=== PATIENT | female | born 1975 | race Caucasian/White ===

== ENCOUNTER 2020-05-25 06:54 | Emergency (ER) | payer BC, SELFPAY ==
--- NOTE | ~2020-05-25 | XR_ITS ---
EXAMINATION: XR hip RT min 3V w AP pelvis DATE: 05/25/2020 08:08 INDICATION: Right hip pain. TECHNIQUE: An anteroposterior view of the pelvis and 3 views of right hip were obtained. COMPARISON: CT abdomen and pelvis 03/08/2017 FINDINGS: Bone alignment is normal. No fracture. There is mild osteoarthritis of the hips. There is s evere degenerative disc disease at L4-L5. IMPRESSION: 1. Mild osteoarthritis of the hips. Reviewed, dictated and finalized at location B. [employer]
[2020-05-25 07:05] VITALS: BP 146/109; PULSE 89; RESP 14; TEMP 36.8; O2SAT 100
--- NOTE | 2020-05-25 07:31 | PC.NURSE ---
Assumed care of pt, pt is alert and upright on stretcher, Discussed POC.
--- NOTE | 2020-05-25 07:43 | ED.LOWEXIN ---
HPI - Extremity Injury (Lower) General Chief Complaint: Extremity Injury, Lower Stated Complaint: hamstring pulled Time Seen by Provider: 05/25/20 07:42 Source: patient and family Mode of arrival: ambulatory Limitations: no limitations History of Present Illness HPI Narrative: 44 years old white female, obese, complaining of severe pain at the back of right thigh started this morning. Patient was walking somehow her right leg went forward in front of her and probably did split. Patient denies other injuries. Pain started from the back of the right buttocks to the back of the right thigh. Patient denies any fever, chills, nausea, vomiting, headache, back injury or neck injury. Related Data Home Medications Medication Instructions Recorded Confirmed norgestimate 0.25 mg-ethinyl 1 tablet PO DAILY 05/17/19 estradiol 35 mcg tablet venlafaxine 225 mg tablet,extended 225 mg PO DAILY 05/17/19 release 24 hr folic acid 1 mg tablet 1 mg PO DAILY 05/20/19 methotrexate sodium 2.5 mg tablet 20 mg PO WEEKLY tablet 05/20/19 Allergies Allergy/AdvReac Type Severity Reaction Status Date / Time adalimumab Allergy Unknown rash Verified 05/25/20 07:39 cefdinir Allergy Unknown rash Verified 05/25/20 07:39 etanercept Allergy Unknown rash Verified 05/25/20 07:39 sulfamethizole Allergy Unknown Vomiting Verified 05/25/20 07:39 trimethoprim Allergy Unknown Unknown Verified 05/25/20 07:39 sulfamethoxazole AdvReac Unknown Nausea and Verified 05/25/20 07:39 Vomiting Review of Systems Review of Systems: Narrative: CONSTITUTIONAL: Denies fever, chills, or sweats. EYES: Denies visual changes, redness, or discharge. ENT: Denies rhinorrhea, congestion, sore throat, or otalgia. CARDIOVASCULAR: Denies chest pain, palpitations, or edema. RESPIRATORY: Denies cough or dyspnea. GASTROINTESTINAL: Denies abdominal pain, nausea, vomiting, or diarrhea. GENITOURINARY: Denies dysuria or hematuria. SKIN: Denies rash or itching. MUSCULOSKELETAL: Denies back pain, joint pain, or myalgia. NEUROLOGIC: Denies headache, numbness, or weakness. PSYCHIATRIC: Denies anxiety or depression. [facility] Past Medical History Medical History (Updated 05/25/20 @ 09:24 by Natasha Vazquez MD) Anemia delivery delivered Fibromyalgia S/P ORIF (open reduction internal fixation) fracture L LE-following fall-tib/fib fx May 15 2019; May 25, 2019 Tibia/fibula fracture L LE; May 15, 2019. Family History Family History Mother Family history of mental disorder Depression Family history of migraine headaches Hypertension Asthma Family history of arthritis Patient's mother is in good health, Onset Age: 57 Family history of allergic disorder Sibling Depression Family history of migraine headaches Asthma Grandparent Family history of malignant neoplasm of breast Other Family history of malignant neoplasm of breast in first degree relative Social History Social History Smoking status: Never smoker Second hand tobacco smoke exposure: No Alcohol intake: never Exam Narrative: Exam Narrative: General appearance: Well-developed, well-nourished, obese, in pain Skin: Normal color Head: Normocephalic, nontraumatic Neck: Supple, nontender Chest and respiratory: Airway patent, no respiratory distress, no accessory muscle use Heart: Regular rate/rhythm Vascular: Normal peripheral pulses, normal capillary refill. Musculoskeletal: Mild tenderness right thigh posteriorly, worse with any movement of the right hip. No bruises, no swelling or deformity. Neurologic: Alert and oriented ?3, SUPERINTENDENT NONSELLING is normal as tested, no gross motor deficit
[2020-05-25] MEDS: HYDROmorphone HCL INJ (*CRX) 1 MG/ML SYR IM (08:14)
[2020-05-25] MEDS: ONDANSETRON HCL ODT 4 MG TABLET PO (08:15)
[2020-05-25] MEDS: IBUPROFEN 400 MG TABLET 800 MG PO (08:15)
[2020-05-25 08:17] VITALS: BP 139/97; PULSE 82; RESP 17; O2SAT 98
[2020-05-25 09:03] VITALS: BP 136/96; PULSE 87; RESP 15; O2SAT 97
[2020-05-25 09:42] VITALS: BP 133/88; PULSE 76; RESP 14
== END 2020-05-25 09:45 | disposition home or self-care (01) ==
PROVIDERS: Emergency Provider Emergency Medicine; PCP Family Medicine
DX: S73.101A Unspecified sprain of right hip, initial encounter (principal); M79.7 Fibromyalgia; Z86.2 Personal history of diseases of the blood and blood-forming organs and certain disorders involving the immune mechanism; X50.9XXA Other and unspecified overexertion or strenuous movements or postures, initial encounter
CPT/HCPCS: 73502; 96372; 99283; A9270; J1170

== ENCOUNTER → 2021-01-08 11:29 | Outpatient (CLI) | payer BC, SELFPAY ==
--- NOTE | ~2021-01-08 | MM_ITS ---
EXAMINATION: MM screening [facility] BI w umm HISTORY: Screening TECHNIQUE: Craniocaudal and mediolateral oblique 3-D tomosynthesis images were obtained and synthetic 2-D images were generated. CAD analysis was submitted and interpreted. COMPARISON: Comparison to multiple prior studies sequentially, with oldest reviewed study dated 11/2012. BREAST PARENCHYMAL COMPOSITION: There are scattered areas of fibroglandular density. FINDINGS: There is no evidence of suspicious mass, calcification, or architectural distortion to sugg est malignancy in either breast. There has been no suspicious interval change. IMPRESSION: 1. No mammographic evidence of malignancy. 2. Recommend routine screening mammography in one year. BI-RADS Category 1: Negative Reviewed, dictated and finalized at location A.
== END ==
PROVIDERS: Visit Provider Nurse Practitioner
DX: Z12.31 Encounter for screening mammogram for malignant neoplasm of breast (principal)
CPT/HCPCS: 77063; 77067

== ENCOUNTER 2021-03-11 10:02 | Emergency (ER) | payer OTHER, SELFPAY ==
--- NOTE | ~2021-03-11 | XR_ITS ---
EXAMINATION: XR chest 2V DATE: 03/11/2021 10:52 INDICATION: 6 days of cough. Afebrile. TECHNIQUE: PA and lateral views of the chest were obtained. COMPARISON: Chest radiograph dated 04/12/90 FINDINGS: Scattered patchy airspace opacities throughout both lungs most prominent in the left mid and lower allyssa ng zones with appearance most consistent with COVID pneumonia. No pleural effusion or pneumothorax. T he cardiomediastinal silhouette is normal. Visualized bones and soft tissues are unremarkable. IMPRESSION: 1. Patchy bilateral lung disease most consistent with COVID pneumonia. Reviewed, dictated and finalized at location A.
[2021-03-11 10:11] VITALS: BP 105/67; PULSE 80; RESP 20; TEMP 36.1; O2SAT 95
--- NOTE | 2021-03-11 10:39 | ED.GENADULT ---
HPI - General Adult General Chief complaint: Upper Respiratory Infection Stated complaint: cough Time Seen by Provider: 03/11/21 10:39 Source: patient Mode of arrival: ambulatory Limitations: no limitations History of Present Illness HPI narrative: 45-year-old female patient presents to the [facility] with complaints of a cough and sinus congestion for the past week. Denies fevers, body aches or chills. Patient has been fully vaccinated with a [employer] Covid vaccine. Patient states she has been coughing up a lot of drainage as well as feeling very congested. Patient states she does feel little shortness of breath. Patient states she has been taking DayQuil and NyQuil and Mucinex for her symptoms Related Data Home Medications Medication Instructions Recorded Confirmed norgestimate 0.25 mg-ethinyl 1 tablet PO DAILY 05/17/19 03/11/21 estradiol 35 mcg tablet venlafaxine 225 mg tablet,extended 225 mg PO DAILY 05/17/19 03/11/21 release 24 hr folic acid 1 mg tablet 1 mg PO DAILY 05/20/19 03/11/21 methotrexate sodium 2.5 mg tablet 20 mg PO WEEKLY tablet 05/20/19 03/11/21 bupropion HCl 150 mg 24 hr tablet, 150 mg PO QAM 08/28/20 03/11/21 extended release cholecalciferol (vitamin D3) 50 50 mcg PO DAILY 08/28/20 03/11/21 mcg (2,000 unit) capsule cyclobenzaprine 10 mg tablet 10 mg PO TID 08/28/20 03/11/21 diclofenac sodium 2 % topical 1 packet TOPICAL BID 08/28/20 03/11/21 solution in packet diclofenac sodium 75 mg 75 mg PO BID 08/28/20 03/11/21 tablet,delayed release hydroxychloroquine 200 mg tablet 200 mg PO BID 08/28/20 03/11/21 leflunomide 20 mg tablet 20 mg PO DAILY 08/28/20 03/11/21 levothyroxine 150 mcg capsule 150 mcg PO DAILY 08/28/20 03/11/21 ascorbic sibt-eoaqtkll-scz 1 ea PO DAILY 03/11/21 03/11/21 [Emergen-C Immune Plus] jepskltpfteu-agv-qjsm-FA-vit K 1 tablet PO DAILY 03/11/21 03/11/21 [One Daily Women's] rituximab [Rituxan] 1,000 mg IV USEASDIRECTD 03/11/21 03/11/21 Allergies Allergy/AdvReac Type Severity Reaction Status Date / Time adalimumab Allergy Unknown rash Verified 03/11/21 10:07 cefdinir Allergy Unknown rash Verified 03/11/21 10:07 etanercept Allergy Unknown rash Verified 03/11/21 10:07 sulfamethizole Allergy Unknown Vomiting Verified 03/11/21 10:07 trimethoprim Allergy Unknown Unknown Verified 03/11/21 10:07 sulfamethoxazole AdvReac Unknown Nausea and Verified 03/11/21 10:07 Vomiting Review of Systems Review of Systems: CONSTITUTIONAL: Denies fever, chills, or sweats. EYES: Denies visual changes, redness, or discharge. ENT: Positive rhinorrhea, congestion, denies sore throat, or otalgia. CARDIOVASCULAR: Denies chest pain, palpitations, or edema. RESPIRATORY: Positive productive cough, positive dyspnea. GASTROINTESTINAL: Denies abdominal pain, nausea, vomiting, or diarrhea. GENITOURINARY: Denies dysuria or hematuria. SKIN: Denies rash or itching. MUSCULOSKELETAL: Denies back pain, joint pain, or myalgia. NEUROLOGIC: Denies headache, numbness, or weakness. PSYCHIATRIC: Denies anxiety or depression. [facility] Past Medical History Medical History (Updated 03/11/21 @ 11:05 by JOHN Mcdonnell) Anemia delivery delivered Fibromyalgia Tibia/fibula fracture L LE; May 15, 2019. Surgical History Surgical History S/P ORIF (open reduction internal fixation) fracture L LE-following fall-tib/fib fx May 15 2019; May 25, 2019 Family History Family History Mother Family history of mental disorder Depression Family history of migraine headaches Hypertension Asthma Family history of arthritis Patient's mother is in good health, Onset Age: 57 Family history of allergic disorder Sibling Depression Family history of migraine headaches Asthma Grandparent Family history of malignant neoplasm of breast Other Family history of malignant neoplasm of
--- NOTE | 2021-03-11 13:31 | PC.NURSE ---
1019 Covid test in progress. Patient to have CXR.
[2021-03-12 23:32] LABS: SARS-CoV-2 RNA PCR Positive
== END 2021-03-11 11:26 | disposition home or self-care (01) ==
PROVIDERS: Emergency Provider Nurse Practitioner Family; PCP Family Medicine
DX: M79.7 Fibromyalgia (principal)
CPT/HCPCS: 71046; 87426; 99213; C9803; G0463; U0003; U0005

== ENCOUNTER 2021-03-14 03:19 | Inpatient (IN) | payer BC, SELFPAY ==
[2021-03-14] VITALS (27 sets, daily range): BP systolic 123–154; BP diastolic 81–97; PULSE 73–88; RESP 18–26; TEMP 36.2–37.1; O2SAT 90–100; BMI 37.7
--- NOTE | 2021-03-14 | ECHO_ITS ---
Patient Info Name: Anabel Johns Age: 45 years : 1975 Gender: Female Ht: 64 in Wt: 219 lbs BSA: 2.17 m2 HR: 78 bpm BP: 145 / 92 mmHg Heart Rhythm: Sinus Rhythm Technical Quality: Good Exam Date: 03/14/2021 12:57 PM Exam Location: [facility] Exam Room: ICU1 Patient Status: Inpatient Admit Date: 03/14/2021 Staff Ordering Physician: Anthony Marin MD Clinical Study Manager: Adele Brown RDCS Attending Provider: Ezequiel Harris MD Exam Type: CA echo doppler color flow Study Info Indications - HYPOXIA COVID Complete two-dimensional, color flow and Doppler transthoracic echocardiogram is performed. Summary 1. Complete two-dimensional, color flow and Doppler transthoracic echocardiogram is performed. 2. Left ventricular chamber dimension is normal. 3. Left ventricular systolic function is normal, estimated at 65-70%. 4. There is no increased left ventricular wall thickness. 5. The left ventricular diastolic function is normal. 6. There is mild mitral valve regurgitation. 7. There is trace tricuspid valve regurgitation. 8. No pulmonary hypertension, estimated pulmonary arterial systolic pressure is 29 mmHg. Left Ventricle Left ventricular chamber dimension is normal. Left ventricular systolic function is normal, estimated at 65-70%. There is no increased left ventricular wall thickness. The left ventricular diastolic function is normal. Right Ventricle Right ventricular chamber dimension is normal. Right ventricular systolic function is normal. Left Atria Left atrial chamber dimension is normal. Right Atria Right atrial chamber dimension is normal. Aortic Valve The aortic valve is not well visualized. There is no aortic valve stenosis. There is no aortic valve regurgitation. Pulmonic Valve The pulmonic valve is not well visualized. Mitral Valve The mitral valve has normal leaflets. There is mild mitral valve regurgitation. Tricuspid Valve The tricuspid valve leaflets are normal. There is trace tricuspid valve regurgitation. No pulmonary hypertension, estimated pulmonary arterial systolic pressure is 29 mmHg. Pericardium/Pleural The pericardium appears normal. There is trivial pericardial effusion. Inferior Vena Cava Normal inferior vena cava with >50% collapse upon inspiration consistent with normal right atrial pressure, 5 mmHg. Aorta The aortic root size at the sinus of Valsalva is normal. Left Ventricular Outflow Tract Name Value Normal LVOT 2D LVOT Diameter 2.0 cm LVOT Doppler LVOT Peak Gradient 8 mmHg LVOT Mean Gradient 4 mmHg LVOT VTI 24 cm LVOT VTI/AV VTI Ratio 0.8 LVOT Stroke Volume 75 ml LVOT CO 17.9 l/min LVOT CI 8.3 l/min/m2 Pulmonic Valve Name Value Normal
--- NOTE | ~2021-03-14 | XR_ITS ---
EXAMINATION: XR chest 1V portable INDICATION: Hypoxia and shortness of breath, COVID positive TECHNIQUE: Portable AP chest at 0322 hours COMPARISON: 03/11/2021 FINDINGS: Diffuse opacities persist throughout all lung zones with interval worsening. There is no pl eural effusion or pneumothorax. The cardiomediastinal silhouette is normal. IMPRESSION: 1. Diffuse lung disease with interval worsening, consistent with pneumonia and/or pulmonary edema. Reviewed, dictated and finalized at location A. IMPRESSION: 1. Diffuse lung disease with interval worsening, consistent with pneumonia and/ or pulmonary edema.
--- NOTE | ~2021-03-14 | CT_ITS ---
EXAMINATION: CTA chest PE protocol DATE: 03/14/2021 12:32 INDICATION: Shortness of breath and hypoxia TECHNIQUE: Computed tomography angiography (CTA) of the chest was performed with 100 mL Omnipaque-350 intravenous contrast timed to evaluate the pulmonary arteries. Coronal maximum intensity projection 3D-reconstructions were created by the technologist. The dose-length product (DLP) was 1023.48 mGy-cm . Automated exposure control and iterative reconstruction technique were employed. COMPARISON: None. FINDINGS: The pulmonary arteries are well-opacified. No pulmonary embolism is identified. Respiratory motion artifact somewhat limits examination. There are small pleural effusions. There are widespread interstitial and airspace opacities in all lung zones. No pneumothorax is identified. The heart size is normal. There are multiple old bilateral rib fractures. No pathologically enlarged lymph nodes ar e identified. Stones are present in the nondistended gallbladder. There is severe lower cervical spon dylosis at C6-7. IMPRESSION: 1. No pulmonary mass identified, sensitivity limited by motion artifact. 2. Diffuse lung disease, consistent with COVID pneumonia and/or pulmonary edema and/or acute respirat ory distress syndrome (ARDS). Reviewed, dictated and finalized at location A. IMPRESSION: 1. No pulmonary mass identified, sensitivity limited by motion artifact. 2. Diffuse lung disease, consistent with COVID pneumonia and/or pulmonary edema and/or acute respiratory distress syndrome (ARDS).
--- NOTE | 2021-03-14 03:34 | ECG_ITS ---
Measurements Intervals [place] Rate: 75 P: 35 MS: 166 QRS: -22 QRSD: 106 T: 53 QT: 401 QTc: 449 Interpretive Statements SINUS RHYTHM BORDERLINE R WAVE PROGRESSION, ANTERIOR LEADS BORDERLINE ST-T WAVE ABNORMALITY- HIGH LATERAL LEADS BASELINE ARTIFACT- I, II, III, AVR, AVL, AVF BORDERLINE ECG Electronically Signed On 03-15-2021 16:39:42 CDT by Pankaj Silva D.O.
[2021-03-14 04:04] LABS: Basophils Percent Auto 0.2 % (0.2-1.2); Eosinophils Percent Auto 0.2 % (0-4.4); Hematocrit 34.5 % (37.0-47.0); Hemoglobin 11.2 g/dL (12.0-15.0); Immature Granulocyte Absolute 0.07 K/mm3 (0.00-0.031); Immature Granulocyte Percent A 0.5 % (0-0.5); Lymphocytes Absolute Auto 1.22 K/mm3 (0.9-3.2); Lymphocytes Percent Auto 9.2 % (18.3-44.2); Mean Corpuscular HGB Conc 32.5 g/dl (32-36); Mean Corpuscular Hemoglobin 25.5 pg (26-34); Mean Corpuscular Volume 78.6 fl (80-100); Mean Platelet Volume 9.2 fl (7.4-10.4); Monocytes Absolute Auto 0.4 K/mm3 (0.1-0.6); Monocytes Percent Auto 3.2 % (2.6-8.5); Neutrophils Absolute Auto 11.5 K/mm3 (1.3-6.7); Neutrophils Percent Auto 86.7 % (45.5-73.1); Platelet Count Result 472 k/mm3 (150-375); Red Blood Count 4.39 M/mm3 (4.2-5.4); Red Cell Distribution Width 14.1 % (11.5-14.5); White Blood Count 13.3 K/mm3 (4.5-10.0)
[2021-03-14] MEDS: DEXAMETHASONE SOD PHOS INJ 4 MG/ML VIAL 6 MG IV PUSH (04:06)
[2021-03-14 04:15] LABS: INR 1.2; Prothrombin Time 15.4 Seconds (11.1-14.7)
[2021-03-14 04:16] LABS: Partial Thromboplastin Time 32.6 SECONDS (22.3-36.8)
[2021-03-14 04:18] LABS: Lactic Acid Reflex 1.5 mmol/L (0.7-2.1)
--- NOTE | 2021-03-14 04:31 | ED.SOB ---
HPI - SOB/Dyspnea General Chief Complaint: Shortness of Breath/Dyspnea Stated Complaint: low O2 saturation Time Seen by Provider: 03/14/21 03:24 History of Present Illness HPI Narrative: Patient is a 45-year-old female with history of rheumatoid arthritis and fibromyalgia who presents ER with hypoxia and shortness of breath. Patient has been having symptoms of COVID-19 since 03/04 when she was just having a cough. She was tested on 03/11 with a rapid test that was negative for COVID-19 but then had a PCR that was subsequently positive. Patient has had increasing shortness of breath over the last 3 days. She was diagnosed with Covid pneumonia at a urgent care 2 days ago. Patient had the J&J vaccination in 09/2020. Related Data Home Medications Medication Instructions Recorded Confirmed norgestimate 0.25 mg-ethinyl 1 tablet PO DAILY 05/17/19 03/14/21 estradiol 35 mcg tablet venlafaxine 225 mg tablet,extended 225 mg PO DAILY 05/17/19 03/14/21 release 24 hr folic acid 1 mg tablet 1 mg PO DAILY 05/20/19 03/14/21 bupropion HCl 150 mg 24 hr tablet, 150 mg PO QAM 08/28/20 03/14/21 extended release cholecalciferol (vitamin D3) 50 50 mcg PO DAILY 08/28/20 03/14/21 mcg (2,000 unit) capsule cyclobenzaprine 10 mg tablet 10 mg PO TID 08/28/20 03/14/21 diclofenac sodium 2 % topical 1 packet TOPICAL BID 08/28/20 03/14/21 solution in packet diclofenac sodium 75 mg 75 mg PO BID 08/28/20 03/14/21 tablet,delayed release hydroxychloroquine 200 mg tablet 200 mg PO BID 08/28/20 03/14/21 leflunomide 20 mg tablet 20 mg PO DAILY 08/28/20 03/14/21 levothyroxine 150 mcg capsule 150 mcg PO DAILY 08/28/20 03/14/21 ascorbic kxzl-udrsmioa-pli 1 ea PO DAILY 03/11/21 03/14/21 [Emergen-C Immune Plus] ylmxljaapqsj-reb-tbtv-FA-vit K 1 tablet PO DAILY 03/11/21 03/14/21 [One Daily Women's] rituximab [Rituxan] 1,000 mg IV Q6M 03/11/21 03/14/21 methotrexate sodium (PF) 18.75 mg SUBCUT WEEKLY 03/14/21 03/14/21 Allergies Allergy/AdvReac Type Severity Reaction Status Date / Time adalimumab Allergy Unknown rash Verified 03/14/21 03:32 cefdinir Allergy Unknown rash Verified 03/14/21 03:32 etanercept Allergy Unknown rash Verified 03/14/21 03:32 sulfamethizole Allergy Unknown Vomiting Verified 03/14/21 03:32 trimethoprim Allergy Unknown Unknown Verified 03/14/21 03:32 sulfamethoxazole AdvReac Unknown Nausea and Verified 03/14/21 03:32 Vomiting Review of Systems Review of Systems: All systems reviewed & are unremarkable except as noted in HPI and below Constitutional: Constitutional: Denies chills, Reports fatigue, Denies fever(s) and Reports weakness ENT: Denies nasal congestion and Denies sore throat Cardiovascular: Cardiovascular: Denies chest pain and Denies radiating jaw, neck or arm pain Respiratory: Respiratory: Reports chest congestion, Reports cough and Reports dyspnea Gastrointestinal: Gastrointestinal: Denies abdominal pain, Denies nausea and Denies vomiting Musculoskeletal: Musculoskeletal: Denies back pain and Denies muscle cramps PMFSH Past Medical History Medical History (Updated 03/15/21 @ 06:48 by Boni Evans MD) Anemia Anxiety Depression Essential (primary) hypertension Fibromyalgia Hypothyroidism [place] thyroiditis Irritable bowel syndrome Other hyperlipidemia Rheumatoid arthritis Tibia/fibula fracture L LE; May 15, 2019. Uterus didelphus Surgical History Surgical History (Updated 03/14/21 @ 09:06 by Anthony Marin MD) delivery delivered C/S right uterus 06/14/98; C/S left uterus 04/29/01 S/P ORIF (open reduction internal fixation) fracture L LE-following fall-tib/fib fx May 25 2019; Removal of large fragment screw left ankle 09/07/19 Status post hysteroscopic resection of uterine septum 12/28/90 Family History Family History Mother Family history of mental disorder Depression Family history of migraine headaches Hyp
[2021-03-14 04:46] LABS: Alveolar/Arterial O2 Gradient 490.5 mmHg; Base Excess ABG 0.2 mEq/l (+/-2.0); Carboxyhemoglobin 0.3 % THb (0-2.0); Fractional Inspired Oxygen 100 %; HCO3 ABG 22.9 mEq/l (22.0-26.0); Methemoglobin ABG 0.3 %THb (0-1.5); Oxygen Content ABG 15.1 %vol (16.0-22.0); Oxygen Saturation ABG 99.4 % (95.0-100.0); Oxyhemoglobin 97.5 % THb (90.0-100.0); PCO2 ABG 30.5 mmHg (35.0-45.0); PO2 FiO2 Ratio Arterial Blood 1.92 %; Reduced Hemoglobin 1.9 %THb (0-5.0); Total Hemoglobin 10.7 g/dL (12.0-18.0); pH ABG 7.493 (7.350-7.450)
[2021-03-14 04:47] LABS: Device NON-REBREATHER MASK; Modified Allen's Test Pass; Site Drawn LEFT RADIAL
[2021-03-14 04:53] LABS: Alanine Aminotransferase 33 U/L (4-35); Albumin Level 3.4 g/dL (3.5-5.1); Alkaline Phosphatase 158 U/L (38-126); Anion Gap 7 mmol/L (8-16); Aspartate Amino Transferase 77 U/L (14-36); Bilirubin,Total 0.5 mg/dL (0.2-1.3); Blood Urea Nitrogen 13 mg/dL (7-17); CRP 8.5 mg/dL (<1.0); Calcium 8.7 mg/dL (8.4-10.2); Carbon Dioxide 24 mmol/L (22-30); Chloride 102 mmol/L (98-107); Estimated CRCL calculation 98 ml/min; Estimated Glomerular Filt Rate > 60; Glucose 94 mg/dL (65-110); Potassium 3.3 mmol/L (3.4-5.0); Sodium 133 mmol/L (137-145)
--- NOTE | 2021-03-14 04:57 | PCRCNOTE ---
Pt was on a 15 L nonrebreather mask. Per the doctor's request, pt was switched over to a high flow nasal cannula, which I was able to titrate down to 7L. Pt's O2 sat was 95% when I left the room.
[2021-03-14] MEDS: REMDESIVIR 200 MG/NS 250 ML 200 MG/250 ML BAG 250 MG IVPB (05:42)
--- NOTE | 2021-03-14 06:40 | ADMGEN ---
This patient, Anabel Johns, was admitted to Intensive Care Unit-1. Patient/family oriented to hospital policies and general routines including ID bracelet, bed and alarms, visiting hours, pain management, procedures, bathroom and other care routines, personal items, smoking policy, room service/diet, and visiting hours. Information on how to activate the Rapid Response Team has been discussed. Patient/Family are encouraged to report perceived risks to care and to ask questions if they do not understand what they are told or what they should do.
[2021-03-14] MEDS: SODIUM CHLORIDE 0.9% IV 1,000 ML 125 ML IV CONT (07:05)
[2021-03-14 07:10] LABS: INR 1.2; Prothrombin Time 15.2 Seconds (11.1-14.7)
[2021-03-14 07:15] LABS: Alanine Aminotransferase 31 U/L (4-35); Estimated CRCL calculation 98 ml/min; Estimated Glomerular Filt Rate > 60
--- NOTE | 2021-03-14 08:27 | PM.IMHP ---
H&P: HPI History of Present Illness Date/Time: 03/14/21 08:27 Chief Complaint: Shortness of breath Narrative: 45yo female with RA and fibromyalgia presents with hypoxia and SOB. Patient had the J&J vaccination in 09/2020. Patient has been having symptoms starting on 03/05 with deep cough and chest heaviness associated with the cough. Her symptoms worsened the next few days so she called her doctor on 03/09 but was unable to get in for an appointment. Her cough worsened and was having significant fatigue and malaise thus she presented to the urgent care center on 03/11. Rapid COVID test was negative but chest x-ray was consistent with COVID pneumonia so a PCR was obtained. She was treated with doxycycline, prednisone and albuterol and discharged home. She did have improvement with these treatments. Her has been monitoring her SpO2 at home over the past few days. On 03/13, patient was informed that the COVID PCR was positive. Patient was noted to be hypoxic with an SpO2 in the 70s in the overnight hours. Because of the hypoxia, she presented to the emergency room here for evaluation in the county assessor hours of 03/14. She denies any fever, or chills, dysgeusia, anosmia, nausea, vomiting, diarrhea, myalgias. She is on immunosuppressive agents for her rheumatoid arthritis. Rheumatoid arthritis is well controlled. No active synovitis. She denies any headache, vision changes odynophagia or dysphagia. No urinary symptoms. She takes leflunomide and hydroxychloroquine daily (last dose 03/13), MTX weekly (last dose 02/24) and Rituxan 2 doses 2weeks apart Q4 month (last December 07). In the ED, patient was hemodynamically stable. She is afebrile. She was hypoxic with a SpO2 of 68% on room air and she was placed on 15 L non-rebreather. [place] [id number] but she has been on steroids. She has a mild anemia with a hemoglobin of 11.2 it is microcytic. PH was 7.49 with pCO2 38 PO2 192 on the 15 L non-rebreather. Sodium was 133 with a potassium of 3.3. AST elevated 77. CRP was 8.5. She did have a positive COVID PCR test on 03/11/21. Chest x-ray reviewed personally showing diffuse lung disease with interval worsening when compared to the chest x-ray from 03/11/2021. She received dexamethasone and remdesivir. Azithromycin also added. She was also started on IV fluids and admitted for further care. She has been weaned to 7L HFNC. Review of Systems Review of Systems: All systems reviewed & are unremarkable except as noted in HPI and below PMFSH Past Medical History Medical History (Updated 03/14/21 @ 09:33 by Anthony Marin MD) Anemia Anxiety Depression Essential (primary) hypertension Fibromyalgia Hypothyroidism [place] thyroiditis Irritable bowel syndrome Other hyperlipidemia Rheumatoid arthritis Tibia/fibula fracture L LE; May 15, 2019. Uterus didelphus Surgical History Surgical History (Updated 03/14/21 @ 09:06 by Anthony Marin MD) delivery delivered C/S right uterus 06/14/98; C/S left uterus 04/29/01 S/P ORIF (open reduction internal fixation) fracture L LE-following fall-tib/fib fx May 25 2019; Removal of large fragment screw left ankle 09/07/19 Status post hysteroscopic resection of uterine septum 12/28/90 Family History Family History Mother Family history of mental disorder Depression Family history of migraine headaches Hypertension Asthma Family history of arthritis Patient's mother is in good health, Onset Age: 57 Family history of allergic disorder Sibling Depression Family history of migraine headaches Asthma Grandparent Family history of malignant neoplasm of breast Other Family history of malignant neoplasm of breast in first degree relative Social History Social History (Updated 03/14/21 @ 09:10 by Anthony Marin MD) Social History: No tobacco, alcohol or drug use. She lives at home with her . Th
--- NOTE | 2021-03-14 11:01 | PM.CNPUL ---
Assessment and Plan Assessment and plan (1) Pneumonia due to COVID-19 virus: Code(s): U07.1 - COVID-19; J12.82 - Pneumonia due to coronavirus disease 2019 Status: Acute Assessment and Plan: Patient tested positive for COVID-19 on 03/11 and started on remdesivir, dexamethasone, baricitinib on 03/14. Convalescent plasma ordered 03/14 As she is immunocompromised. - Remdesivir for 10 days Unless he should recover and tolerate room air with rest, ambulation and while sleeping. - Dexamethasone 6 mg IV for 10 days - Baricitinb for 14 days or until discharge - Continuous pulse oximetry - Prone positioning as tolerated. - Avoid any fluid overload. - emperic azihtromycin and ceftraixone for CAP. DC after blood cultures negative for 48 hours. - Albuterol inhaler for symtoms 03/14 CXR worsening infiltrates today. Goal saturation 90-94%, currently on nasal cannula and if fails would utilize high-flow nasal cannula, if fails then BiPAP, if fails then intubation if she is agreeable. discussed with Dr. Marin Will follow with you (2) Acute respiratory failure with hypoxia: Code(s): J96.01 - Acute respiratory failure with hypoxia Status: Acute Assessment and Plan: Etiology of hypoxic respiratory failure is likely COVID pneumonia. Echocardiogram to ensure normal LV function and normal aortic valve function. Check CTA to exclude PE. 03/14 03:15 15 L NRB with sats 98%, ABG 7.49/31/192. 03/14 06:30 7 L NC sats 95%. History of Present Illness History of Present Illness Consult date: 03/14/21 Reason for consult: hypoxemia and other (COVID pneumonia) Chief complaint: COVID Pneumonia, Hypoxia Narrative: this is a new Pulmonary consult for COVID pneumonia with hypoxemic respiratory failure 45-year-old with a history of rheumatoid arthritis on Leflunomide, hydroxychloroquine, methotrexate and Rituxan and s/p J and J vaccine in 09/2020 presented with COVID pneumonia diagnosed on 03/11. Patient presented to the ER on 03/14 21 with worsening shortness of breath, hypoxemia, leukocytosis with a white blood cell count of 13.3 and a chest x-ray with diffuse bilateral interstitial and alveolar infiltrates that had progressed from 03/11. Patient was started on dexamethasone, REM test severe, parasitic neb all on 03/14 and convalescent plasma has been orders since she is immunocompromised. Patient had a blood gas in the emergency department on 15 L non-rebreather with a pH of 7.49/31/192 At baseline patient states she has no respiratory limitations in her activities of daily living and that she could walk approximately 2 miles but then would be limited by her arthritis. She does not smoke and has no exposure to secondhand smoke. 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 03/14 patient states that she feels worse than yesterday and has trouble breathing. She is currently on 7 L high-flow nasal cannula with saturations 91%. Review of Systems Review of Systems: All systems reviewed & are unremarkable except as noted in HPI and below Eyes: Eyes: Reports no additional eye complaints ENT: Reports system reviewed and no additional complaints, except as documented Cardiovascular: Cardiovascular: Reports no additional cardiovascular complaints Respiratory: Respiratory: Reports no additional respiratory complaints Gastrointestinal: Gastrointestinal: Reports no additional gastrointestinal complaints Musculoskeletal: Musculoskeletal: Reports no additional musculoskeletal complaints Integumentary/Breasts: Skin/Breast: Reports system reviewed and no additional complaints, except as docu Neurologic: Reports system reviewed and no additional complaints, except as documented Psychiatric: Psychiatric: Reports no additional psychiatric complaints Endocrine: Endocrine: Reports no additional endocrine complaints PMFSH Past Medical History M
--- NOTE | 2021-03-14 12:00 | PC.NURSE ---
Off floor to Ct via bed.
--- NOTE | 2021-03-14 12:35 | PC.NURSE ---
Returned to room from Ct without issue.
[2021-03-14] MEDS: ALBUTEROL SULFATE (*SP) INHALER 1 PUFF (13:30)
[2021-03-14] MEDS: amLODIPine BESYLATE 5 MG TABLET 10 MG PO (13:37)
[2021-03-14] MEDS: buPROPion HCL XL (24 HR) 150 MG TABCR PO (13:38)
[2021-03-14] MEDS: BARICITINIB 2 MG TABLET 4 MG PO (13:38)
[2021-03-14] MEDS: FOLIC ACID 1 MG TABLET PO (13:38)
[2021-03-14] MEDS: ENOXAPARIN 40 MG/0.4 ML SYRINGE SUB-Q (13:39)
[2021-03-14] MEDS: atenoloL 50 MG TABLET 100 MG PO ×2 (13:39→20:04)
[2021-03-14] MEDS: LEVOTHYROXINE SODIUM 150 MCG TABLET PO (13:40)
[2021-03-14] MEDS: VENLAFAXINE HCL XR 75 MG CAP.ER.24H 225 MG PO (13:40)
[2021-03-14] MEDS: POTASSIUM CHLORIDE 20 MEQ TABLET PO (17:21)
[2021-03-14] MEDS: ALBUTEROL SULFATE (*SP) INHALER 2 PUFF INHALATION (17:23)
[2021-03-14] MEDS: guaiFENesin/DEXTROMETHORPHAN 10 ML UDC PO (21:39)
[2021-03-14] MEDS: SODIUM CHLORIDE 0.9% IV 250 ML 30 ML IV CONT (21:41)
[2021-03-15] VITALS (19 sets, daily range): BP systolic 130–148; BP diastolic 78–94; PULSE 70–87; RESP 18–28; TEMP 36.1–36.6; O2SAT 89–99
[2021-03-15] MEDS: guaiFENesin 12 HR 600 MG TABCR PO ×3 (00:48→20:50)
[2021-03-15] MEDS: guaiFENesin/DEXTROMETHORPHAN 10 ML UDC PO ×4 (01:10→20:56)
[2021-03-15 04:44] LABS: Basophils Percent Auto 0.1 % (0.2-1.2); Eosinophils Percent Auto 0.3 % (0-4.4); Hematocrit 31.2 % (37.0-47.0); Hemoglobin 10.3 g/dL (12.0-15.0); Immature Granulocyte Absolute 0.08 K/mm3 (0.00-0.031); Immature Granulocyte Percent A 0.8 % (0-0.5); Lymphocytes Absolute Auto 1.48 K/mm3 (0.9-3.2); Lymphocytes Percent Auto 14.9 % (18.3-44.2); Mean Corpuscular Hemoglobin 25.6 pg (26-34); Mean Corpuscular Volume 77.6 fl (80-100); Mean Platelet Volume 8.9 fl (7.4-10.4); Monocytes Absolute Auto 0.5 K/mm3 (0.1-0.6); Monocytes Percent Auto 5.1 % (2.6-8.5); Neutrophils Absolute Auto 7.8 K/mm3 (1.3-6.7); Neutrophils Percent Auto 78.8 % (45.5-73.1); Platelet Count Result 463 k/mm3 (150-375); Red Blood Count 4.02 M/mm3 (4.2-5.4); White Blood Count 9.9 K/mm3 (4.5-10.0)
[2021-03-15 04:53] LABS: INR 1.3; Prothrombin Time 15.8 Seconds (11.1-14.7)
[2021-03-15 04:56] LABS: D Dimer 1.18 ug/mL (<0.48)
[2021-03-15 05:00] LABS: Alanine Aminotransferase 33 U/L (4-35); Albumin Level 3.3 g/dL (3.5-5.1); Alkaline Phosphatase 147 U/L (38-126); Anion Gap 4 mmol/L (8-16); Aspartate Amino Transferase 55 U/L (14-36); Bilirubin,Total 0.5 mg/dL (0.2-1.3); Blood Urea Nitrogen 12 mg/dL (7-17); CRP 5.3 mg/dL (<1.0); Calcium 8.7 mg/dL (8.4-10.2); Carbon Dioxide 26 mmol/L (22-30); Chloride 103 mmol/L (98-107); Estimated CRCL calculation 114 ml/min; Estimated Glomerular Filt Rate > 60; Glucose 89 mg/dL (65-110); Lactate Dehydrogenase 1071 U/L (313-618); Magnesium 1.9 mg/dL (1.6-2.3); Potassium 3.5 mmol/L (3.4-5.0); Sodium 133 mmol/L (137-145)
[2021-03-15 05:03] LABS: NT Pro B Type Natriuretic Pept 1550 pg/mL (5-100)
[2021-03-15] MEDS: LEVOTHYROXINE SODIUM 150 MCG TABLET PO (06:15)
--- NOTE | 2021-03-15 06:39 | PC.NURSE ---
This patient, Anabel Johns, was transferred to [ 210] on 03/15/21 at 0630. Personal belongings sent with patient. Report given to [Lien BOGGS]. Appropriate documentation sent with patient.
[2021-03-15 07:54] LABS: Thyroid Stimulating Hormone Reflex 0.308 uIU/mL (0.465-4.68)
[2021-03-15 09:14] LABS: Free T4 Free Thyroxine Reflex 1.24 ng/dL (0.78-2.19)
[2021-03-15] MEDS: REMDESIVIR 100 MG/NS 250 ML 100 MG/250 ML BAG 250 MG IVPB (10:00)
[2021-03-15] MEDS: CHOLECALCIFEROL 1,000 UNITS TABLET 2000 UNITS PO (10:01)
[2021-03-15] MEDS: ENOXAPARIN 40 MG/0.4 ML SYRINGE SUB-Q (10:02)
[2021-03-15] MEDS: amLODIPine BESYLATE 5 MG TABLET 10 MG PO (10:02)
[2021-03-15] MEDS: FOLIC ACID 1 MG TABLET PO (10:02)
[2021-03-15] MEDS: BARICITINIB 2 MG TABLET 4 MG PO (10:02)
[2021-03-15] MEDS: atenoloL 50 MG TABLET 100 MG PO ×2 (10:03→20:50)
[2021-03-15] MEDS: buPROPion HCL XL (24 HR) 150 MG TABCR PO (10:04)
[2021-03-15] MEDS: DEXAMETHASONE SOD PHOS INJ 4 MG/ML VIAL 6 MG IV PUSH (10:04)
[2021-03-15] MEDS: VENLAFAXINE HCL XR 75 MG CAP.ER.24H 225 MG PO (10:05)
--- NOTE | 2021-03-15 11:03 | PM.PNPUL ---
Progress Note: A&P Assessment and Plan (1) Pneumonia due to COVID-19 virus: Code(s): U07.1 - COVID-19; J12.82 - Pneumonia due to coronavirus disease 2019 Status: Acute Assessment and Plan: Patient tested positive for COVID-19 on 03/11 and started on remdesivir, dexamethasone, baricitinib on 03/14. Convalescent plasma given s she is immunocompromised. - Remdesivir for 10 days Unless he should recover and tolerate room air with rest, ambulation and while sleeping. - Dexamethasone 6 mg IV for 10 days - Baricitinb for 14 days or until discharge - Continuous pulse oximetry - Prone positioning as tolerated. - Avoid any fluid overload. - emperic azihtromycin and ceftraixone for CAP. DC after blood cultures negative for 48 hours. - Albuterol inhaler for symtoms 03/14 CXR worsening infiltrates today. CT angiogram negative for PE. 03/15 She stated the albuterol inhaler helps her breathe easier and I will restart these at Q 4 hours while awake. Goal saturation 90-94%, currently on nasal cannula and if fails would utilize high-flow nasal cannula, if fails then BiPAP, if fails then intubation if she is agreeable. Patient is currently receiving optimal care for her COVID pneumonia, no additional recommendations at this time. Will sign off. Please call with any questions. (2) Acute respiratory failure with hypoxia: Code(s): J96.01 - Acute respiratory failure with hypoxia Status: Acute Assessment and Plan: Etiology of hypoxic respiratory failure is likely COVID pneumonia. Echocardiogram to ensure normal LV function and normal aortic valve function. Check CTA to exclude PE. 03/14 03:15 15 L NRB with sats 98%, ABG 7.49/31/192. 03/14 06:30 7 L NC sats 95%. 03/15 08:00 6 L NC sats 94% Subjective Date/time seen: 03/15/21 11:03 Interval history: this is a new Pulmonary consult for COVID pneumonia with hypoxemic respiratory failure 45-year-old with a history of rheumatoid arthritis on Leflunomide, hydroxychloroquine, methotrexate and Rituxan and s/p J and J vaccine in 09/2020 presented with COVID pneumonia diagnosed on 03/11. Patient presented to the ER on 03/14 21 with worsening shortness of breath, hypoxemia, leukocytosis with a white blood cell count of 13.3 and a chest x-ray with diffuse bilateral interstitial and alveolar infiltrates that had progressed from 03/11. Patient was started on dexamethasone, REM test severe, parasitic neb all on 03/14 and convalescent plasma has been orders since she is immunocompromised. Patient had a blood gas in the emergency department on 15 L non-rebreather with a pH of 7.49/31/192 At baseline patient states she has no respiratory limitations in her activities of daily living and that she could walk approximately 2 miles but then would be limited by her arthritis. She does not smoke and has no exposure to secondhand smoke. She denies vaping, illicit drug use, sandblasting, welding, asbestos were, professional painting or steel mill tender. 03/14 patient states that she feels worse than yesterday and has trouble breathing. She is currently on 7 L high-flow nasal cannula with saturations 91%. CT angiogram negative for PE but consistent with bilateral multifocal COVID pneumonia. Echo with normal LV systolic function, normal diastolic function, mild mitral valve regurg, trace tricuspid valve regurg with a estimated pulmonary arterial systolic pressure of 29. Normal RV size and function, normal right atrial size. 03/15 Patient states that she has more shortness of breath and more coughing but is otherwise unchanged. She is currently on 6 L high-flow nasal cannula with saturation 96%. DATA EXAMINATION: CTA chest PE protocol DATE: 03/14/2021 12:32 INDICATION: Shortness of breath and hypoxia TECHNIQUE: Computed tomography angiography (CTA) of the chest was performed with 100 mL Omnipaque-350 intravenous contrast timed t
--- NOTE | 2021-03-15 11:10 | PM.IMPN ---
Progress Note: A&P Assessment and Plan (1) Acute respiratory failure with hypoxia: Code(s): J96.01 - Acute respiratory failure with hypoxia Status: Acute Assessment and Plan: Patient with acute respiratory failure with hypoxia present on admission. This is related to COVID pneumonia. Currently on 6L high-flow nasal cannula. Consider other etiologies such as CHF, bacterial PNA but felt less likely. Wean O2 as tolerated. Continue Albuterol (2) Pneumonia due to COVID-19 virus: Code(s): U07.1 - COVID-19; J12.82 - Pneumonia due to coronavirus disease 2018 Status: Acute Assessment and Plan: Patient became symptomatic on 03/05. She tested positive for COVID on 03/11. CTA showing no PE but diffuse lung disease consistent with COVID pneumonia. Echo essentially normal. Will continue remdesivir, dexamethasone and Baricitinib. Continue to monitor liver tests closely. CRP better. Wean oxygen as tolerated. Encouraged her to lie prone as tolerated. Increase activity. Incentive spirometry. Follow inflammatory markers. (3) Essential (primary) hypertension: Code(s): I10 - Essential (primary) hypertension Status: Acute Assessment and Plan: Patient's blood pressure was reviewed on 03/15 Blood pressure remains reasonably well controlled. Will continue current medications with atenolol and amlodipine. Adjust medications as necessary. 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 Hydroxychloroquine interacts with Remdesivir so caty continue to hold this for now. Baricitinib is a treatment for RA. (5) Hypothyroidism: Qualifiers: Hypothyroidism type: acquired Qualified Code(s): E03.9 - Hypothyroidism, unspecified Code(s): E03.9 - Hypothyroidism, unspecified Status: Acute Assessment and Plan: Stable. TSH slightly low at 0.31 possibly related to steroids. Continue levothyroxine. (6) DVT prophylaxis: Code(s): Z29.9 - Encounter for prophylactic measures, unspecified Status: Acute Assessment and Plan: Lovenox Subjective Date/time seen: 03/15/21 11:10 Interval history: 45yo female with RA and fibromyalgia presents with hypoxia and SOB and is known COVID positive. Patient had the J&J vaccination in 09/2020. Patient has been having symptoms starting on 03/05. She tested positive for COVID PCR on 03/11. No nausea vomiting. Having diarrhea. Appetite increasing. She still feels short of breath is worse with activity. No chest pain. Lan Analyst was agreeable to continue hydroxychloroquine. Exam Narrative: AF 98.0 145/91 77 20 96% 6L/min Gen - NARD Chest - improved air exchange, nml RR CV - RRR S1/S2; Tele showing no significant dyrhythmias Abd - soft, NT/ND, +BS Ext - no pedal edema. Neuro - nonfocal Psych - normal mood and affect. Patient is pleasant and cooperative. Skin - warm and dry. Objective Data Vital Signs Vital Signs: Vital Signs - 24 hr 03/14/21 12:00 03/14/21 13:30 03/14/21 13:39 Temperature 98.1 F Pulse Rate 83 81 Respiratory Rate 26 H Blood Pressure 141/97 H Pulse Oximetry 96 98 03/14/21 14:00 03/14/21 16:00 03/14/21 17:15 Temperature 97.1 F L Pulse Rate 77 82 82 Respiratory Rate 23 H Blood Pressure 134/90 Pulse Oximetry 93 93 03/14/21 18:00 03/14/21 20:00 03/14/21 20:04 Temperature 98.3 F Pulse Rate 77 78 77 Respiratory Rate 18 Blood Pressure 144/85 H Pulse Oximetry 92 03/14/21 21:30 03/14/21 21:49
[2021-03-15] MEDS: ALBUTEROL SULFATE (*SP) AEROSOL 1 PUFF 2 PUFF INHALATION ×2 (14:17→21:52)
[2021-03-15 17:29] LABS: Total Triiodothyronine (T3) 1.09 NG/ML (0.97-1.69)
[2021-03-16] VITALS (25 sets, daily range): BP systolic 130–143; BP diastolic 80–94; PULSE 64–96; RESP 16–22; TEMP 35.5–36.6; O2SAT 86–100
[2021-03-16 05:09] LABS: Basophils Percent Auto 0.2 % (0.2-1.2); Eosinophils Percent Auto 0.3 % (0-4.4); Hematocrit 29.8 % (37.0-47.0); Hemoglobin 9.5 g/dL (12.0-15.0); Immature Granulocyte Absolute 0.04 K/mm3 (0.00-0.031); Immature Granulocyte Percent A 0.6 % (0-0.5); Lymphocytes Absolute Auto 1.16 K/mm3 (0.9-3.2); Lymphocytes Percent Auto 17.8 % (18.3-44.2); Mean Corpuscular HGB Conc 31.9 g/dl (32-36); Mean Corpuscular Hemoglobin 24.8 pg (26-34); Mean Corpuscular Volume 77.8 fl (80-100); Mean Platelet Volume 8.5 fl (7.4-10.4); Monocytes Absolute Auto 0.5 K/mm3 (0.1-0.6); Monocytes Percent Auto 7.1 % (2.6-8.5); Neutrophils Absolute Auto 4.8 K/mm3 (1.3-6.7); Platelet Count Result 417 k/mm3 (150-375); Red Blood Count 3.83 M/mm3 (4.2-5.4); Red Cell Distribution Width 14.1 % (11.5-14.5); White Blood Count 6.5 K/mm3 (4.5-10.0)
[2021-03-16 05:19] LABS: INR 1.3
[2021-03-16 05:25] LABS: Alanine Aminotransferase 46 U/L (4-35); Albumin Level 3.1 g/dL (3.5-5.1); Alkaline Phosphatase 139 U/L (38-126); Anion Gap 5 mmol/L (8-16); Aspartate Amino Transferase 57 U/L (14-36); Bilirubin,Total 0.3 mg/dL (0.2-1.3); Blood Urea Nitrogen 10 mg/dL (7-17); Calcium 8.6 mg/dL (8.4-10.2); Carbon Dioxide 27 mmol/L (22-30); Chloride 103 mmol/L (98-107); Estimated CRCL calculation 115 ml/min; Estimated Glomerular Filt Rate > 60; Glucose 100 mg/dL (65-110); Potassium 3.6 mmol/L (3.4-5.0); Sodium 135 mmol/L (137-145)
[2021-03-16] MEDS: LEVOTHYROXINE SODIUM 150 MCG TABLET PO (06:05)
[2021-03-16 07:06] LABS: Iron 61 ug/dL (37-170)
[2021-03-16 07:18] LABS: Percent Iron Saturation 23 % (20-50)
[2021-03-16] MEDS: ALBUTEROL SULFATE (*SP) AEROSOL 1 PUFF 2 PUFF INHALATION ×2 (08:40→14:15)
[2021-03-16] MEDS: DEXAMETHASONE SOD PHOS INJ 4 MG/ML VIAL 6 MG IV PUSH (09:07)
[2021-03-16] MEDS: FOLIC ACID 1 MG TABLET PO (09:07)
[2021-03-16] MEDS: ENOXAPARIN 40 MG/0.4 ML SYRINGE SUB-Q (09:07)
[2021-03-16] MEDS: VENLAFAXINE HCL XR 75 MG CAP.ER.24H 225 MG PO (09:07)
[2021-03-16] MEDS: BARICITINIB 2 MG TABLET 4 MG PO (09:07)
[2021-03-16] MEDS: CHOLECALCIFEROL 1,000 UNITS TABLET 2000 UNITS PO (09:07)
[2021-03-16] MEDS: buPROPion HCL XL (24 HR) 150 MG TABCR PO (09:08)
[2021-03-16] MEDS: guaiFENesin 12 HR 600 MG TABCR PO ×2 (09:08→20:52)
[2021-03-16] MEDS: amLODIPine BESYLATE 5 MG TABLET 10 MG PO (09:08)
[2021-03-16] MEDS: atenoloL 50 MG TABLET 100 MG PO ×2 (09:08→20:52)
[2021-03-16] MEDS: REMDESIVIR 100 MG/NS 250 ML 100 MG/250 ML BAG 250 MG IVPB (10:58)
--- NOTE | 2021-03-16 13:09 | PM.IMPN ---
Progress Note: A&P Assessment and Plan (1) Acute respiratory failure with hypoxia: Code(s): J96.01 - Acute respiratory failure with hypoxia Status: Acute Assessment and Plan: Patient with acute respiratory failure with hypoxia present on admission related to COVID pneumonia. She was on 15L NRB on admission but able to wean to 4L high-flow nasal cannula.Other etiologies such as CHF, bacterial PNA felt less likely. Wean O2 as tolerated. Continue Albuterol. She is requesting discharge. She has had 2 days of improvement so with proceed with home O2 evaluation with plans for discharge tomorrow. (2) Pneumonia due to COVID-19 virus: Code(s): U07.1 - COVID-19; J12.82 - Pneumonia due to coronavirus disease 2019 Status: Acute Assessment and Plan: Patient became symptomatic on 03/05. She tested positive for COVID on 03/11. CTA showing no PE but diffuse lung disease consistent with COVID pneumonia. Echo essentially normal. Will continue remdesivir, dexamethasone and Baricitinib. Liver tests noted; continue to monitor liver tests closely. Wean oxygen as tolerated. Encouraged her to continue to lie prone as tolerated. (3) Essential (primary) hypertension: Code(s): I10 - Essential (primary) hypertension Status: Acute Assessment and Plan: Patient's blood pressure was reviewed on 03/16 Blood pressure remains reasonably well controlled. Will continue current medications with atenolol and amlodipine. Adjust medications as necessary. (4) Rheumatoid arthritis involving both ankles with positive rheumatoid factor: Code(s): M05.771 - Rheumatoid arthritis with rheumatoid factor of right ankle and foot without organ or systems involvement; M05.772 - Rheumatoid arthritis with rheumatoid factor of left ankle and foot without organ or systems involvement Status: Acute Assessment and Plan: Patient with rheumatoid arthritis that is well controlled with hydroxychloroquine, leflunomide, Rituxan and methotrexate. Hydroxychloroquine interacts with Remdesivir so will continue to hold this for now. Baricitinib is a treatment for RA. (5) Hypothyroidism: Qualifiers: Hypothyroidism type: acquired Qualified Code(s): E03.9 - Hypothyroidism, unspecified Code(s): E03.9 - Hypothyroidism, unspecified Status: Acute Assessment and Plan: Stable. TSH slightly low at 0.31 possibly related to steroids. Continue levothyroxine. (6) Anemia: Code(s): D64.9 - Anemia, unspecified Status: Acute Assessment and Plan: Hgb 11.2 with microcytic anemia. Ferritin not helpful since an acute phase reactant. Iron studies normal. No evidence of acute blood loss. Not on IV fluids. Possibly medication related or chronic anemia from her RA. Will follow for now. (7) DVT prophylaxis: Code(s): Z29.9 - Encounter for prophylactic measures, unspecified Status: Acute Assessment and Plan: Lovenox Subjective Date/time seen: 03/16/21 13:09 Interval history: 45yo female with RA and fibromyalgia presents with hypoxia and SOB and is known COVID positive. Patient had the J&J vaccination in 09/2020. Patient has been having symptoms starting on 03/05. She tested positive for COVID PCR on 03/11. No n/v. Slight diarrhea. Having chest tightness with cough. Cough nonproductive. Eating okay but has decreased appetite. Able to wean to 4L today. Patient using IS and is tolerating lying prone. Exam Narrative: AF 97.8 143/94 76 22 98% 4L/min HFNC Gen - NARD Chest - distant BS with a few inspiratory dry crackles, nml RR CV - RRR S1/S2; Tele showing no significant dyrhythmias Abd - soft, NT/ND, +BS Ext - no pedal edema. Psych - normal mood and affect. Patient is pleasant and cooperative. Skin - warm and dry. Objective Data Vital Signs Vital Signs: Vital Signs - 24 hr 03/15/21 14:00 03/15/21 14:23 03/15/21 15:25 Temperature
--- NOTE | 2021-03-16 14:17 | HOMEO2EVAL ---
Evaluation was performed at [facility] Home Oxygen Evaluation RC: Home Oxygen (O2) Evaluation Start: 03/16/21 13:18 Freq: ONCE Status: Active Protocol: RPE Activity Type Activity Date Activity User E-Sign Co-Sign Detail Recorded Client Recorded Date Recorded By Document 03/16/21 13:25 [email or web address] [email or web address] 03/16/21 14:15 DJO Document 03/16/21 13:30 [email or web address] [email or web address] 03/16/21 14:15 DJO Document 03/16/21 13:35 [email or web address] [email or web address] 03/16/21 14:15 DJO Document 03/16/21 13:40 [email or web address] [email or web address] 03/16/21 14:15 DJO Document 03/16/21 13:45 [email or web address] [email or web address] 03/16/21 14:15 DJO Document 03/16/21 13:50 [email or web address] [email or web address] 03/16/21 14:15 DJO Document 03/16/21 14:05 [email or web address] [email or web address] 03/16/21 14:15 DJO 03/16/21 03/16/21 03/16/21 13:25 13:30 13:35 Home O2 Evaluation Test Phase Resting Resting Resting Oxygen Delivery Room Air Nasal Cannula Nasal Cannula Oxygen Flow Rate (L/min) 1 2 Pulse Oximetry (90-100 %) 86 L 88 L 90 Pulse Rate (60-100 beats/min) 79 78 76 Treatment Charges O2 Evaluation - Inpatient 03/16/21 03/16/21 03/16/21 13:40 13:45 13:50 Home O2 Evaluation Test Phase Exercise Exercise Exercise Oxygen Delivery Nasal Cannula Nasal Cannula Nasal Cannula Oxygen Flow Rate (L/min) 2 3 4 Pulse Oximetry (90-100 %) 86 L 88 L 90 Pulse Rate (60-100 beats/min) 89 92 96 Treatment Charges 03/16/21 14:05 Home O2 Evaluation Test Phase Resting Oxygen Delivery Nasal Cannula Oxygen Flow Rate (L/min) 2 Pulse Oximetry (90-100 %) 90 Pulse Rate (60-100 beats/min) 78 Treatment Charges
--- NOTE | 2021-03-16 14:17 | PCRTNOTE ---
HOME O2 EVAL COMPLETE, 2 LITERS REST AND 4 LITERS WITH ACTIVITY. SET UP WITH [facility]. PHONE NUMBER [phone]. TANK HAS BEEN DELIVERED TO PT'S ROOM FOR DISCHARGE.
[2021-03-16] MEDS: guaiFENesin/DEXTROMETHORPHAN 10 ML UDC PO (14:23)
[2021-03-17] VITALS (7 sets, daily range): BP systolic 143–149; BP diastolic 69–89; PULSE 56–81; RESP 16–18; TEMP 36.1–36.6; O2SAT 98–100
[2021-03-17 05:44] LABS: Basophils Percent Auto 0.1 % (0.2-1.2); Eosinophils Percent Auto 0.4 % (0-4.4); Hematocrit 31.8 % (37.0-47.0); Immature Granulocyte Absolute 0.07 K/mm3 (0.00-0.031); Lymphocytes Absolute Auto 1.13 K/mm3 (0.9-3.2); Lymphocytes Percent Auto 16.5 % (18.3-44.2); Mean Corpuscular HGB Conc 31.4 g/dl (32-36); Mean Corpuscular Hemoglobin 25.1 pg (26-34); Mean Corpuscular Volume 79.7 fl (80-100); Mean Platelet Volume 8.7 fl (7.4-10.4); Monocytes Absolute Auto 0.7 K/mm3 (0.1-0.6); Monocytes Percent Auto 10.7 % (2.6-8.5); Neutrophils Absolute Auto 4.9 K/mm3 (1.3-6.7); Neutrophils Percent Auto 71.3 % (45.5-73.1); Platelet Count Result 426 k/mm3 (150-375); Red Blood Count 3.99 M/mm3 (4.2-5.4); Red Cell Distribution Width 14.5 % (11.5-14.5); White Blood Count 6.8 K/mm3 (4.5-10.0)
[2021-03-17 05:52] LABS: INR 1.2
[2021-03-17 06:01] LABS: Alanine Aminotransferase 59 U/L (4-35); Estimated CRCL calculation 115 ml/min; Estimated Glomerular Filt Rate > 60
[2021-03-17 06:03] LABS: Alanine Aminotransferase 59 U/L (4-35); Alkaline Phosphatase 118 U/L (38-126); Anion Gap 5 mmol/L (8-16); Aspartate Amino Transferase 52 U/L (14-36); Bilirubin,Total 0.3 mg/dL (0.2-1.3); Blood Urea Nitrogen 12 mg/dL (7-17); Calcium 8.4 mg/dL (8.4-10.2); Carbon Dioxide 27 mmol/L (22-30); Chloride 101 mmol/L (98-107); Estimated CRCL calculation 115 ml/min; Estimated Glomerular Filt Rate > 60; Glucose 99 mg/dL (65-110); Potassium 3.7 mmol/L (3.4-5.0); Sodium 133 mmol/L (137-145)
[2021-03-17] MEDS: LEVOTHYROXINE SODIUM 150 MCG TABLET PO (06:08)
[2021-03-17] MEDS: ALBUTEROL SULFATE (*SP) AEROSOL 1 PUFF 2 PUFF INHALATION (08:50)
[2021-03-17] MEDS: DEXAMETHASONE SOD PHOS INJ 4 MG/ML VIAL 6 MG IV PUSH (09:03)
[2021-03-17] MEDS: ENOXAPARIN 40 MG/0.4 ML SYRINGE SUB-Q (09:03)
[2021-03-17] MEDS: buPROPion HCL XL (24 HR) 150 MG TABCR PO (09:04)
[2021-03-17] MEDS: FOLIC ACID 1 MG TABLET PO (09:04)
[2021-03-17] MEDS: guaiFENesin 12 HR 600 MG TABCR PO (09:04)
[2021-03-17] MEDS: atenoloL 50 MG TABLET 100 MG PO (09:05)
[2021-03-17] MEDS: VENLAFAXINE HCL XR 75 MG CAP.ER.24H 225 MG PO (09:05)
[2021-03-17] MEDS: CHOLECALCIFEROL 1,000 UNITS TABLET 2000 UNITS PO (09:05)
[2021-03-17] MEDS: BARICITINIB 2 MG TABLET 4 MG PO (09:05)
[2021-03-17] MEDS: amLODIPine BESYLATE 5 MG TABLET 10 MG PO (09:06)
--- NOTE | 2021-03-17 10:30 | PM.DS ---
DS: Admitting Diagnosis Admitting Diagnosis Shortness of breath DS: Discharge Diagnosis Discharge Diagnosis (1) Acute respiratory failure with hypoxia: Code(s): J96.01 - Acute respiratory failure with hypoxia Status: Acute (2) Pneumonia due to COVID-19 virus: Code(s): U07.1 - COVID-19; J12.82 - Pneumonia due to coronavirus disease 2019 Status: Acute DS: Summary Hospital Course Reason for hospitalization: Shortness of breath Hospital Course: This is a 45yo lady with a past medical history including but not limited to RA and fibromyalgia who presented on 03/14/2021 with hypoxia and SOB. Patient had the J&J vaccination in 09/2020. Patient has been having symptoms starting on 03/05 with deep cough and chest heaviness associated with the cough. Her symptoms worsened the next few days so she called her doctor on 03/09 but was unable to get in for an appointment. Her cough worsened and was having significant fatigue and malaise thus she presented to the urgent care center on 03/11. Rapid COVID test was negative but chest x-ray was consistent with COVID pneumonia so a PCR was obtained. She was treated with doxycycline, prednisone and albuterol and discharged home. She did have improvement with these treatments. Her has been monitoring her SpO2 at home over the past few days. On 03/13, patient was informed that the COVID PCR was positive. Patient was noted to be hypoxic with an SpO2 in the 70s in the overnight hours. 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 She is on immunosuppressive agents for her rheumatoid arthritis. Rheumatoid arthritis is well controlled. No active synovitis. She denies any headache, vision changes odynophagia or dysphagia. No urinary symptoms. She takes leflunomide and hydroxychloroquine daily (last dose 03/13), MTX weekly (last dose 02/24) and Rituxan 2 doses 2weeks apart Q4 month (last December 07). In the ED, patient was hemodynamically stable. She was afebrile. She was hypoxic with a SpO2 of 68% on room air and she was placed on 15 L non-rebreather. White count was 22739 but she has been on steroids. She has a mild anemia with a hemoglobin of 11.2 it is microcytic. PH was 7.49 with pCO2 38 PO2 192 on the 15 L non-rebreather. Sodium was 133 with a potassium of 3.3. AST elevated 77. CRP was 8.5. She did have a positive COVID PCR test on 03/11/21. Chest x-ray revealed diffuse lung disease with interval worsening when compared to the chest x-ray from 03/11/2021. Pulmonary was consulted. She was started on remdesivir, dexamethasone, baricitinib on 03/14. Convalescent plasma ordered 03/14 As she is immunocompromised. She was monitored with continuous pulse oximetry. She was put on prone positioning as tolerated. She was treatred empirically with azithromycin and ceftriaxone for CAP. Blood cultures have remained negative for 48 hours and Iv antibiotics were stopped. Patient wa started on albuterol inhaler for symptoms of chest congestion and shortness of breath as needed; they will be ordered home. On 03/14 CXR worsening infiltrates. She received dexamethasone and remdesivir. Azithromycin also added. She was been weaned to 7L HFNC down to 4 liters. Currently patient is doing well saturating mid 90s on 4liters at rest. Home O2 evaluation was done; patient requesting discharge and will be sent home on oxygen 2 liters at rest and 4 liters with activity. Time spent discussing smoking cessation with patient: more than 10 minutes Status at Discharge Functional status at discharge: independent ambulation Overall status at discharge: patient is progressing back to baseline Time Spent with Patient Time attestation: Total time spent providing and/or coordinating discharge services: Time spent: Greater than 30 minutes Exam Narrative: AF 97.8 143/94 76 22 98% 4L/min HFNC Gen - NARD Chest - distant BS with a few inspiratory dry crackles, n
== END 2021-03-17 11:27 | disposition home or self-care (01) | DRG 177 ==
LOC: ANHED 05:01 → ANHICU 05:44 → ANHIMU 03-15 06:48 → ANHICU 03-20 16:19 → ANHIMU 03-20 16:19
PROVIDERS: Internal Medicine; Admitting Provider Internal Medicine; Emergency Provider Emergency Medicine; PCP Family Medicine; Visit Provider Internal Medicine
DX: U07.1 COVID-19 (principal); J12.82 Pneumonia due to coronavirus disease 2019; J96.01 Acute respiratory failure with hypoxia; I10 Essential (primary) hypertension; E03.9 Hypothyroidism, unspecified; M05.772 Rheumatoid arthritis with rheumatoid factor of left ankle and foot without organ or systems involvement; M05.771 Rheumatoid arthritis with rheumatoid factor of right ankle and foot without organ or systems involvement; M79.7 Fibromyalgia; Z79.899 Other long term (current) drug therapy
CPT/HCPCS: 36415; 36430; 36600; 71045; 71275; 80053; 82375; 82565; 82728; 82805; 83050; 83540; 83550; 83605; 83615; 83735; 83880; 84439; 84443; 84460; 84480; 85025; 85380; 85610; 85730; 86140; 86900; 86901; 87040; 93005; 93306; 94618; 94640; 96361; 96365; 96368; 96375; 99285; A9270; G0378; J0456; J1100; J1650; J7030; J7050; P9059; Q9967

== ENCOUNTER 2021-04-09 11:54 | Outpatient (CLI) | payer BC, SELFPAY ==
--- NOTE | ~2021-04-09 | XR_ITS ---
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 Normal heart size. No hilar or mediastinal enlargement. Old posterolateral right seventh rib fracture deformity. IMPRESSION: Dramatic improvement of bilateral infiltrates since 03/14/2021, with mild residual infiltra te in the lower lung zones Reviewed, dictated and finalized at location B. IMPRESSION: Dramatic improvement of bilateral infiltrates since 03/14/2021, with mild residual infiltrate in the lower lung zones
== END 2021-04-09 11:55 | disposition home or self-care (01) ==
LOC: ANHIMG 12:00
PROVIDERS: PCP Family Medicine; Visit Provider Internal Medicine Pulmonary Disease
DX: U07.1 COVID-19 (principal); J12.82 Pneumonia due to coronavirus disease 2019
CPT/HCPCS: 71046

== ENCOUNTER 2021-04-12 07:43 | Outpatient (CLI) | payer BC, SELFPAY ==
[2021-04-12 08:30] VITALS: PULSE 99; O2SAT 96
[2021-04-12 08:35] VITALS: PULSE 126; O2SAT 95
[2021-04-12 08:45] VITALS: PULSE 97; O2SAT 97
--- NOTE | 2021-04-12 08:46 | HOMEO2EVAL ---
Evaluation was performed at [facility] Home Oxygen Evaluation RC: Home Oxygen (O2) Evaluation Start: 04/12/21 08:44 Freq: Status: Active Protocol: RPE Activity Type Activity Date Activity User E-Sign Co-Sign Detail Recorded Client Recorded Date Recorded By Document 04/12/21 08:30 ZAC [id number] 04/12/21 08:46 ZAC Document 04/12/21 08:35 ZAC [id number] 04/12/21 08:46 ZAC Document 04/12/21 08:45 ZAC [id number] 04/12/21 08:46 ZAC 04/12/21 04/12/21 04/12/21 08:30 08:35 08:45 Home O2 Evaluation Test Phase Resting Exercise Resting Oxygen Delivery Room Air Room Air Room Air Pulse Oximetry (90-100 %) 96 95 97 Pulse Rate (60-100 beats/min) 99 126 H 97 Ambulation Distance (feet) 600 Home Oxygen Evaluation Comments NO HOME O2 REQUIRED AT THIS TIME. Treatment Charges O2 Evaluation - Outpatient
== END 2021-04-12 07:44 | disposition home or self-care (01) ==
PROVIDERS: PCP Family Medicine; Visit Provider Internal Medicine Pulmonary Disease
DX: U07.1 COVID-19 (principal); J12.82 Pneumonia due to coronavirus disease 2019
CPT/HCPCS: 94618

== ENCOUNTER 2021-04-26 07:55 | Inpatient (IN) | payer BC, SELFPAY ==
--- NOTE | ~2021-04-26 | XR_ITS ---
XR hip RT 2V w AP pelvis DATE: 04/26/2021 09:08 INDICATION: Fall. Pop in the right hip. Unable to bear weight. Right hip pain. TECHNIQUE: AP pelvis views. AP and lateral views of right hip. COMPARISON: None FINDINGS: Up to 1.3 cm laterally displaced linear vertical fracture through the right iliac crest. No other pelvic fracture is noted. The pubic symphysis and sacroiliac joints are intact. No fracture or dislocation, avascular necrosis or bone destruction of the right hip. Transitional lumbosacral vertebra sacralization pseudoarthrosis on the left, lumbarization on the rig ht. IMPRESSION: Linear vertical fracture through the right iliac crest with up to 1.3 cm lateral displace ment Reviewed, dictated and finalized at location B. IMPRESSION: Linear vertical fracture through the right iliac crest with up to 1 .3 cm lateral displacement
--- NOTE | ~2021-04-26 | CT_ITS ---
EXAMINATION: CT abdomen pelvis w con EXAM DATE: 04/26/2021 12:39 INDICATION: iliac crest fracture TECHNIQUE: Spiral CT of the abdomen and pelvis was performed following intravenous injection of 100 m L Omnipaque 350. Axial, coronal and sagittal images of the abdomen and pelvis were reviewed. The do se-length product (DLP) for this examination was 1334.98 mGy-cm. The exposure was tailored according to patient size (auto mA exposure control), and iterative reconstruction (ASIR) was used as addition al dose reduction technique. Comparison is made to prior examination from 03/08/2017. 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 There is mild inferior displacement. This does not disrupt the pelvic ring, no other pelvic fractures are identified. The liver, spleen, adrenal glands and pancreas are unremarkable. There are gallstones within an othe rwise unremarkable gallbladder. No evidence of obstructive biliary disease. 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 The bladder is unremarkable. There is no retroperitoneal or pelvic lymphadenopa thy. There are no findings to suggest appendicitis. The stomach and small bowel are unremarkable. There is expected amount of colonic stool. No free intraperitoneal gas. The heart is normal in size. T here are no pericardial or pleural effusions. The lung bases are unremarkable. There are bilateral posterior rib fractures which appear subacute to chronic. These have some buttres sing, without solid bone bridging. There is chronic bilateral L4 spondylolysis with grade 2 anterolis thesis L4 on L5, moderate to severe L4-5 disc disease. There is been mild progression in the anteroli sthesis compared to 2017. IMPRESSION: 1. Acute right iliac crest fracture with mild inferior displacement, mild posterior angulation. Pel ganesh ring intact. 2. Multiple subacute to chronic posterior rib fractures. 3. Chronic L4 spondylolysis, progression of grade 2 anterolisthesis L4 on L5. 4. No solid organ injury. 5. Mullerian anomaly. Reviewed, dictated and finalized at location A. IMPRESSION: 1. Acute right iliac crest fracture with mild inferior displacement, mild post erior angulation. Pelvic ring intact. 2. Multiple subacute to chronic posterior rib fractures. 3. Chronic L4 spondylolysis, progression of grade 2 anterolisthesis L4 on L5. 4. No solid organ injury. 5. Mullerian anomaly.
[2021-04-26 08:09] VITALS: BP 121/81; PULSE 78; RESP 16; TEMP 36.8; O2SAT 100
[2021-04-26] MEDS: KETOROLAC 30 MG/ML VIAL (*BKC) IM (08:57)
[2021-04-26] MEDS: HYDROmorphone HCL INJ (*CRX) 1 MG/ML SYR 0.5 MG IV PUSH ×3 (09:35→21:36)
--- NOTE | 2021-04-26 09:35 | ECG_ITS ---
Measurements Intervals [place] Rate: 77 P: 48 WV: 161 QRS: -23 QRSD: 98 T: 21 QT: 409 QTc: 464 Interpretive Statements SINUS RHYTHM DELAYED PRECORDIAL R/S TRANSITION BASELINE ARTIFACT- I, II, III, AVR, AVL, AVF BORDERLINE ECG Electronically Signed On 04-26-2021 11:13:42 CDT by Pankaj Silva D.O.
--- NOTE | 2021-04-26 09:39 | ED.LOWEXIN ---
HPI - Extremity Injury (Lower) General Chief Complaint: Extremity Injury, Lower Stated Complaint: r hip/leg pain Time Seen by Provider: 04/26/21 08:45 Source: patient History of Present Illness HPI Narrative: Patient presents with right hip pain. Patient reports she was is getting ready for work when she tripped over her dog she able to catch herself she did not hit her head there was no loss of consciousness. She went about her day when she was at work she bent over and felt a pop in her right hip. She reported severe pain and came to the ER for evaluation. She reports she has a hard time moving her right lower extremity due to pain. She reports diffuse numbness throughout the leg. Her pain is achy, constant, worse with attempting move around, radiates down her leg Related Data Home Medications Medication Instructions Recorded Confirmed norgestimate 0.25 mg-ethinyl 1 tablet PO DAILY 05/17/19 04/05/21 estradiol 35 mcg tablet venlafaxine 225 mg tablet,extended 225 mg PO DAILY 05/17/19 04/05/21 release 24 hr folic acid 1 mg tablet 1 mg PO DAILY 05/20/19 04/05/21 bupropion HCl 150 mg 24 hr tablet, 150 mg PO QAM 08/28/20 04/05/21 extended release cholecalciferol (vitamin D3) 50 50 mcg PO DAILY 08/28/20 04/05/21 mcg (2,000 unit) capsule cyclobenzaprine 10 mg tablet 10 mg PO TID 08/28/20 04/05/21 diclofenac sodium 2 % topical 1 packet TOPICAL BID 08/28/20 04/05/21 solution in packet diclofenac sodium 75 mg 75 mg PO BID 08/28/20 04/05/21 tablet,delayed release hydroxychloroquine 200 mg tablet 200 mg PO BID 08/28/20 04/05/21 levothyroxine 150 mcg capsule 150 mcg PO DAILY 08/28/20 04/05/21 Emergen-C Immune Plus 1 ea PO DAILY 03/11/21 04/05/21 One Daily Women's 1 tablet PO DAILY 03/11/21 04/05/21 Allergies Allergy/AdvReac Type Severity Reaction Status Date / Time adalimumab Allergy Unknown rash Verified 04/05/21 14:13 cefdinir Allergy Unknown rash Verified 04/05/21 14:13 etanercept Allergy Unknown rash Verified 04/05/21 14:13 trimethoprim Allergy Unknown Unknown Verified 04/05/21 14:13 sulfamethizole AdvReac Unknown Vomiting Verified 04/26/21 13:47 sulfamethoxazole AdvReac Unknown Nausea and Verified 04/05/21 14:13 Vomiting Review of Systems Review of Systems: CONSTITUTIONAL: Denies fever, chills, or sweats. EYES: Denies visual changes, redness, or discharge. ENT: Denies rhinorrhea, congestion, sore throat, or otalgia. CARDIOVASCULAR: Denies chest pain, palpitations, or edema. RESPIRATORY: Denies cough or dyspnea. GASTROINTESTINAL: Denies abdominal pain, nausea, vomiting, or diarrhea. GENITOURINARY: Denies dysuria or hematuria. SKIN: Denies rash or itching. MUSCULOSKELETAL: Denies back pain, or myalgia. NEUROLOGIC: Denies headache, dizzines. PSYCHIATRIC: Denies anxiety or depression. All systems reviewed & are unremarkable except as noted in HPI and below PMFSH Past Medical History Medical History Anemia Anxiety Depression Essential (primary) hypertension Fibromyalgia Hypothyroidism [place] thyroiditis Irritable bowel syndrome Other hyperlipidemia Rheumatoid arthritis Tibia/fibula fracture L LE; May 15, 2019. Uterus didelphus Surgical History Surgical History delivery delivered C/S right uterus 06/14/98; C/S left uterus 04/29/01 S/P ORIF (open reduction internal fixation) fracture L LE-following fall-tib/fib fx May 25 2019; Removal of large fragment screw left ankle 09/07/19 Status post hysteroscopic resection of uterine septum 12/28/90 Family History Family History Mother Family history of mental disorder Depression Family history of migraine headaches Hypertension Asthma Family history of arthritis Patient's mother is in good health, Onset Age: 57 Family history of allergic disorder Sibling Depression Fami
[2021-04-26 10:00] VITALS: BP 134/86; PULSE 85; RESP 14; O2SAT 97
[2021-04-26 10:06] LABS: Basophils Percent Auto 0.3 % (0.2-1.2); Eosinophils Absolute Auto 0.1 K/mm3 (0-0.3); Eosinophils Percent Auto 0.8 % (0-4.4); Hematocrit 38.7 % (37.0-47.0); Hemoglobin 12.2 g/dL (12.0-15.0); Immature Granulocyte Absolute 0.08 K/mm3 (0.00-0.031); Immature Granulocyte Percent A 0.5 % (0-0.5); Lymphocytes Absolute Auto 1.27 K/mm3 (0.9-3.2); Lymphocytes Percent Auto 8.5 % (18.3-44.2); Mean Corpuscular HGB Conc 31.5 g/dl (32-36); Mean Corpuscular Hemoglobin 26.3 pg (26-34); Mean Corpuscular Volume 83.6 fl (80-100); Mean Platelet Volume 9.3 fl (7.4-10.4); Monocytes Absolute Auto 0.8 K/mm3 (0.1-0.6); Monocytes Percent Auto 5.6 % (2.6-8.5); Neutrophils Absolute Auto 12.7 K/mm3 (1.3-6.7); Neutrophils Percent Auto 84.3 % (45.5-73.1); Platelet Count Result 397 k/mm3 (150-375); Red Blood Count 4.63 M/mm3 (4.2-5.4); Red Cell Distribution Width 15.2 % (11.5-14.5)
[2021-04-26 10:19] LABS: Anion Gap 8 mmol/L (8-16); Blood Urea Nitrogen 9 mg/dL (7-17); Calcium 9.2 mg/dL (8.4-10.2); Carbon Dioxide 26 mmol/L (22-30); Chloride 103 mmol/L (98-107); Estimated CRCL calculation 100 ml/min; Estimated Glomerular Filt Rate > 60; Glucose 109 mg/dL (65-110); Potassium 3.7 mmol/L (3.4-5.0); Sodium 137 mmol/L (137-145)
[2021-04-26 10:51] LABS: INR 0.9; Prothrombin Time 12.3 Seconds (11.1-14.7)
[2021-04-26 10:52] LABS: Partial Thromboplastin Time 29.6 SECONDS (22.3-36.8)
--- NOTE | 2021-04-26 12:43 | PM.CNOR ---
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 She tripped over her dog- near fall but did not actually fall Later at work she bent over to get something out of a cupboard and felt a sharp pop and then pain on wt bearing and any attempt at motion of the hip PMFSH Past Medical History Medical History Anemia Anxiety Depression Essential (primary) hypertension Fibromyalgia Hypothyroidism [place] thyroiditis Irritable bowel syndrome Other hyperlipidemia Rheumatoid arthritis Tibia/fibula fracture L LE; May 15, 2019. Uterus didelphus Surgical History Surgical History delivery delivered C/S right uterus 06/14/98; C/S left uterus 04/29/01 S/P ORIF (open reduction internal fixation) fracture L LE-following fall-tib/fib fx May 25 2019; Removal of large fragment screw left ankle 09/07/19 Status post hysteroscopic resection of uterine septum 12/28/90 Family History Family History Mother Family history of mental disorder Depression Family history of migraine headaches Hypertension Asthma Family history of arthritis Patient's mother is in good health, Onset Age: 57 Family history of allergic disorder Sibling Depression Family history of migraine headaches Asthma Grandparent Family history of malignant neoplasm of breast Other Family history of malignant neoplasm of breast in first degree relative Social History Social History Social History: No tobacco, alcohol or drug use. She lives at home with her . They have dogs. Her children have moved out of the house. She nominated her to be the individual would make medical decisions for her if she is unable. She initially requests DNR status but have changed to full code at this time until she talks with her . Second hand tobacco smoke exposure: No Alcohol intake: never Substance use: never Substance use type: does not use Spiritual care concerns: No Meds Home Medications and Allergies Home Medications Medication Instructions Recorded Confirmed Type norgestimate 0.25 mg-ethinyl 1 tablet PO DAILY 05/17/19 04/05/21 History estradiol 35 mcg tablet venlafaxine 225 mg tablet,extended 225 mg PO DAILY 05/17/19 04/05/21 History release 24 hr folic acid 1 mg tablet 1 mg PO DAILY 05/20/19 04/05/21 History bupropion HCl 150 mg 24 hr tablet, 150 mg PO QAM 08/28/20 04/05/21 History extended release cholecalciferol (vitamin D3) 50 50 mcg PO DAILY 08/28/20 04/05/21 History mcg (2,000 unit) capsule cyclobenzaprine 10 mg tablet 10 mg PO TID 08/28/20 04/05/21 History diclofenac sodium 2 % topical 1 packet TOPICAL BID 08/28/20 04/05/21 History solution in packet diclofenac sodium 75 mg 75 mg PO BID 08/28/20 04/05/21 History tablet,delayed release hydroxychloroquine 200 mg tablet 200 mg PO BID 08/28/20 04/05/21 History levothyroxine 150 mcg capsule 150 mcg PO DAILY 08/28/20 04/05/21 History atenolol 100 mg tablet 100 mg PO BID #60 tablet 09/24/20 04/05/21 Rx amlodipine 10 mg tablet 10 mg PO DAILY #90 tablet 10/30/20 04/05/21 Rx Emergen-C Immune Plus 1 ea PO DAILY 03/11/21 04/05/21 History One Daily Women's 1 tablet PO DAILY 03/11/21 04/05/21 History albuterol sulfate [Ventolin HFA] 2 puff INHALATION .Q4 hours PRN 03/11/21 04/05/21 Rx #18 gm atorvastatin 20 mg tablet 20 mg PO DAILY #90 tablet 03/21/21 04/05/21 Rx
[2021-04-26 13:06] VITALS: BP 142/95; PULSE 81; RESP 17; O2SAT 100
[2021-04-26 15:48] VITALS: BMI 41.5
--- NOTE | 2021-04-26 15:56 | ADMGEN ---
This patient, Anabel Johns, was admitted to [facility] Surg Room 328-01. Patient/family oriented to hospital policies and general routines including ID bracelet, bed and alarms, visiting hours, pain management, procedures, bathroom and other care routines, personal items, smoking policy, room service/diet, and visiting hours. Information on how to activate the Rapid Response Team has been discussed. Patient/Family are encouraged to report perceived risks to care and to ask questions if they do not understand what they are told or what they should do.
[2021-04-26 16:00] VITALS: BP 141/90; PULSE 86; RESP 18; TEMP 35.9; O2SAT 100
--- NOTE | 2021-04-26 16:00 | PM.IMHP ---
H&P: HPI History of Present Illness Date/Time: 04/26/21 16:00 Chief Complaint: Right hip/back pain. Narrative: This is a 45-year-old female with hypertension, hyperlipidemia, rheumatoid arthritis, and hypothyroidism who presented to the emergency department earlier today via private vehicle for evaluation of right hip/leg pain. Not long prior to arrival, while at work, she bent over to get something out of a cupboard and she suddenly felt a ?pop in her right low back/hip area. When she went to step forward she had significant sharp, shooting pain in the same area and she could not bear weight secondary to such. She reports a history of sciatica which has been acting up recently, but this pain is quite different. Hip x-ray on arrival to the emergency department showed a linear vertical fracture through the right iliac crest and with further questioning the patient denies having had any recent fall or trauma. She does mention that she stumbled a bit over her dog this morning while getting ready for work, however she did not suffer any injuries or falls at that time. She has had a difficult time getting up to the bedside commode due to the pain but when she is not moving it is pretty manageable. Review of Systems Review of Systems: Twelve systems were reviewed. Recently hospitalized for COVID-19 in March, was discharged home on home oxygen but has been off of that since the end of March. She is doing well in that regard, no fever, chills, sweats, cough, shortness of breath, etc.. Appetite has been good. No nausea or vomiting. No diarrhea. No dysuria. RA seems to be under pretty good control with no significant joint pain or swelling at this time. She has been having increasing problems with fibromyalgia a recently which she believes is due to the weather change. Except as documented, all other systems were reviewed and are negative. [facility] Past Medical History Medical History Anemia Anxiety Depression Essential (primary) hypertension Fibromyalgia Fracture of left tibia and fibula (05/15/19) Hypothyroidism [place] thyroiditis. Irritable bowel syndrome Other hyperlipidemia Pneumonia due to COVID-19 virus (02/2021) Rheumatoid arthritis Uterus didelphus Surgical History Surgical History History of 2 sections Right uterus 06/14/1998. Left uterus 04/29/2001. History of open reduction and internal fixation (ORIF) procedure Left leg tibia/fibula fracture with hardware removal on 09/07/2019. Status post hysteroscopic resection of uterine septum (12/28/90) Family History Family History Mother Family history of allergic disorder Family history of arthritis Depression Patient's mother is in good health, Onset Age: 57 Family history of mental disorder Family history of migraine headaches Hypertension Asthma Sibling Depression Family history of migraine headaches Asthma Family history of allergic disorder Grandparent Family history of malignant neoplasm of breast Social History Social History (Updated 04/26/21 @ 21:02 by Pattie Kennedy PA-C) Social History: The patient lives in [place] with her . They have 2 grown children. Employed at [employer]. No tobacco, alcohol, or drug use. She designates her Chepe as her surrogate decision maker and she wishes to be a full code. Meds Home Medications and Allergies Home Medications Medication Instructions Recorded Confirmed Type norgestimate 0.25 mg-ethinyl 1 tablet PO DAILY 05/17/19 04/26/21 History estradiol 35 mcg tablet venlafaxine 225 mg tablet,extended 225 mg PO DAILY 05/17/19 04/26/21 History release 24 hr folic acid 1 mg tablet 1 mg PO DAILY 05/20/19 04/26/21 History bupropion HCl 150 mg 24 hr tablet, 150 mg PO HS 08/28/20 04/26/21
[2021-04-26] MEDS: HYDROcodone/acetaminophen (*CRX) 5-325 MG TABLET 1 TAB PO (18:36)
[2021-04-26 20:00] VITALS: BP 152/93; PULSE 83; RESP 18; TEMP 35.9; O2SAT 100
[2021-04-26] MEDS: CYCLOBENZAPRINE HCL 10 MG TABLET PO (21:41)
[2021-04-26] MEDS: buPROPion HCL XL (24 HR) 150 MG TABCR PO (21:42)
[2021-04-26] MEDS: HYDROXYCHLOROQUINE SULFATE 200 MG TABLET PO (21:42)
[2021-04-26 23:21] VITALS: PULSE 74
[2021-04-26] MEDS: atenoloL 50 MG TABLET 100 MG PO (23:21)
[2021-04-27] VITALS: BP 128/86; PULSE 85; RESP 18; TEMP 35.9; O2SAT 100
[2021-04-27] MEDS: HYDROcodone/acetaminophen (*CRX) 5-325 MG TABLET 1 TAB PO ×4 (02:00→20:54)
[2021-04-27 04:00] VITALS: BP 137/88; PULSE 89; RESP 18; TEMP 35.8; O2SAT 98
[2021-04-27] MEDS: HYDROmorphone HCL INJ (*CRX) 1 MG/ML SYR 0.5 MG IV PUSH ×4 (05:24→18:43)
[2021-04-27] MEDS: LEVOTHYROXINE SODIUM 150 MCG TABLET PO (05:29)
[2021-04-27 07:12] LABS: Basophils Percent Auto 0.2 % (0.2-1.2); Eosinophils Absolute Auto 0.2 K/mm3 (0-0.3); Eosinophils Percent Auto 2.3 % (0-4.4); Hematocrit 34.1 % (37.0-47.0); Immature Granulocyte Absolute 0.02 K/mm3 (0.00-0.031); Immature Granulocyte Percent A 0.2 % (0-0.5); Lymphocytes Absolute Auto 0.98 K/mm3 (0.9-3.2); Lymphocytes Percent Auto 10.4 % (18.3-44.2); Mean Corpuscular HGB Conc 32.3 g/dl (32-36); Mean Corpuscular Hemoglobin 26.8 pg (26-34); Mean Corpuscular Volume 83.2 fl (80-100); Mean Platelet Volume 9.3 fl (7.4-10.4); Monocytes Percent Auto 10.4 % (2.6-8.5); Neutrophils Absolute Auto 7.2 K/mm3 (1.3-6.7); Neutrophils Percent Auto 76.5 % (45.5-73.1); Platelet Count Result 365 k/mm3 (150-375); Red Cell Distribution Width 14.9 % (11.5-14.5); White Blood Count 9.4 K/mm3 (4.5-10.0)
[2021-04-27 07:40] LABS: Alanine Aminotransferase 13 U/L (4-35); Albumin Level 3.7 g/dL (3.5-5.1); Alkaline Phosphatase 116 U/L (38-126); Anion Gap 4 mmol/L (8-16); Aspartate Amino Transferase 22 U/L (14-36); Bilirubin,Total 0.3 mg/dL (0.2-1.3); Blood Urea Nitrogen 6 mg/dL (7-17); Calcium 8.9 mg/dL (8.4-10.2); Carbon Dioxide 30 mmol/L (22-30); Chloride 105 mmol/L (98-107); Estimated CRCL calculation 119 ml/min; Estimated Glomerular Filt Rate > 60; Glucose 105 mg/dL (65-110); Potassium 3.6 mmol/L (3.4-5.0); Sodium 139 mmol/L (137-145)
[2021-04-27] MEDS: FOLIC ACID 1 MG TABLET PO (08:05)
[2021-04-27] MEDS: HYDROXYCHLOROQUINE SULFATE 200 MG TABLET PO ×2 (08:05→17:36)
[2021-04-27] MEDS: DICLOFENAC SOD 75 MG TABLET.EC PO ×2 (08:05→17:36)
[2021-04-27] MEDS: atenoloL 50 MG TABLET 100 MG PO ×2 (08:05→17:36)
[2021-04-27] MEDS: MULTIVITAMINS /C LUTEIN (CENTRUM SILVER) TABLET *BKC 1 TAB PO (08:05)
[2021-04-27] MEDS: VENLAFAXINE HCL XR 75 MG CAP.ER.24H 225 MG PO (08:05)
[2021-04-27] MEDS: CHOLECALCIFEROL 1,000 UNITS TABLET 2000 UNITS PO (08:05)
[2021-04-27] MEDS: amLODIPine BESYLATE 5 MG TABLET 10 MG PO (08:56)
[2021-04-27] MEDS: ATORVASTATIN 20 MG TABLET PO (08:57)
--- NOTE | 2021-04-27 11:00 | PM.IMPN ---
Progress Note: A&P Assessment and Plan (1) Fracture of right iliac crest: Code(s): S32.301A - Unspecified fracture of right ilium, initial encounter for closed fracture Status: Acute Assessment and Plan: Unclear what could have caused this fracture; she denies recent falls and trauma Xray found: Linear vertical fracture through the right iliac crest with up to 1.3 cm lateral displacement Orthopedic consult thank you Pain control PT/OT (2) Essential (primary) hypertension: Code(s): I10 - Essential (primary) hypertension Status: Acute Assessment and Plan: BP is 137/88 Continue home amlodipine 10mg PO daily, atenolol 100mg PO BID, Trend blood pressure Adjust medications as needed (3) Hypothyroidism: Qualifiers: Hypothyroidism type: acquired Qualified Code(s): E03.9 - Hypothyroidism, unspecified Code(s): E03.9 - Hypothyroidism, unspecified Status: Acute Assessment and Plan: TSH 3.730 Continue levothyroxine (4) Rheumatoid arthritis: Code(s): M06.9 - Rheumatoid arthritis, unspecified Status: Chronic Assessment and Plan: No acute problems Continue plaquenil (5) Elevated LFTs: Code(s): R79.89 - Other specified abnormal findings of blood chemistry Status: Acute Assessment and Plan: AST/ALT 52/59 Continue to trend Hep panel in the am Time Spent With Patient Time with patient: Greater than 35 minutes Subjective Date/time seen: 04/27/21 11:00 Interval history: Patient is a 45 year old female here for fracture of the iliac crest. Today she is still having a lot of pain in her hip area. She rates her pain a 9/10 which is sharp, and she describes it as waves radiating through her leg. She stated that she has also been very weak and debilitated since she had covid last month. She denies chest pain, shortness of breath, weakness, fatigue, nausea, vomiting, diarrhea, constipation, fevers, sweats, chills. Review of Systems Review of Systems: All systems reviewed & are unremarkable except as noted in HPI and below Exam Const: General: cooperative, healthy appearing, no acute distress, well developed, alert, awake and uncomfortable Nutritional Appearance: well nourished Orientation/consciousness: oriented to person, oriented to place, oriented to time and patient oriented x3 Limitations: physical limitations (Broken pelvis) HENMT: Head: normal to inspection Ears: hearing grossly normal bilaterally General nose exam: Normal external nose present Mouth: Yes Normal oral and palatal mucosa present, Yes lip normal and Yes tongue normal Teeth and gingiva: abnormal tooth and associated gingiva and poor dentition Eyes: General: appearance normal, both eyes and all related structures Neck: Neck: normal visual inspection, full ROM, trachea midline and supple Chest: Chest palpation & inspection: normal inspection of the chest Resp: Effort & Inspection: normal respiratory effort and able to speak in complete sentences Auscultation: clear to auscultation bilaterally Cardio: Jugular venous distension: no JVD Rate: regular rate Rhythm: regular rhythm Heart sounds: S1 normal heart sound present and S2 normal heart sound present Peripheral pulses: Peripheral pulses 2+ throughout GI: Inspection: normal to inspection GI Palp: Yes Soft to palpation and No Tenderness to palpation present (GI) Auscultation: normal bowel sounds Skin: General skin exam: normal color and no rashes or lesions noted Lesions: no lesions Rashes: no rashes Trauma: no lacerations or abrasions Wounds: no wounds Hair: normal Nails: normal Neuro: General: patient oriented x3, moves all extremities and Normal light touch and pain sensation Speech: normal speech Gait exam (Neuro): Normal gait present Extrem: General: normal to inspection, full ROM and capillary refill normal Right upper extremit
[2021-04-27] MEDS: CYCLOBENZAPRINE HCL 10 MG TABLET (11:08)
[2021-04-27 14:00] VITALS: BP 127/81; PULSE 87; RESP 16; TEMP 36.9; O2SAT 98
[2021-04-27 17:36] VITALS: PULSE 87
--- NOTE | 2021-04-27 17:49 | PM.PNORT ---
Progress Note: A&P Additional Plan discussed old fxs and pt assures me she is in a safe environment. She previously was not but has been since 18 yo Pelvic fx is in a good position for closed treatment Mobilize as tolerated. Subjective Subjective Date/Time Seen: 04/27/21 17:49 Exam Extrem: Other: Right Pelvis much less tender. sitting up in bed conversing normally without pain. Walked with Walker across room and sat up in chair SCDs in place NV intact distally good cap refill CT shows pelvic fx ? age of inferior aspect Old rib fxs healed Objective Data Vital Signs Vital Signs: Vital Signs - 24 hr 04/26/21 20:00 04/26/21 23:21 04/27/21 00:00 Temperature 35.9 C L 35.9 C L Pulse Rate 83 74 85 Respiratory Rate 18 18 Blood Pressure 152/93 H 128/86 Pulse Oximetry 100 100 04/27/21 04:00 04/27/21 14:00 04/27/21 17:36 Temperature 35.8 C L 36.9 C Pulse Rate 89 87 87 Respiratory Rate 18 16 Blood Pressure 137/88 127/81 Pulse Oximetry 98 98 Intake/Output Intake/Output: Intake & Output 04/24/21 04/25/21 04/26/21 04/27/21 23:59 23:59 23:59 23:59 Intake Total 890 1030 Output Total 750 1600 Balance 140 -570 Meds/Results Medications: Active Medications Generic Name Dose Route Start Last Admin Trade Name Freq PRN Reason Stop Dose Admin Acetaminophen 650 mg 04/26/21 15:14 Acetaminophen 325 Mg Tablet PO Q6H PRN Pain 1-3 or fever Hydrocodone Bitart/Acetaminophen 1 tab 04/26/21 15:14 04/27/21 15:24 Hydrocodone/Acetaminophen (*Crx) 5-325 Mg Tablet PO 1 tab Q6H PRN Administration Pain Rated 4-6 Amlodipine Besylate 10 mg 04/27/21 09:00 04/27/21 08:56 Amlodipine Besylate 5 Mg Tablet PO 10 mg DAILY MARISOL Administration Atenolol 100 mg 04/26/21 21:10 04/27/21 17:36 Atenolol 50 Mg Tablet PO 100 mg BID MARISOL Administration Atorvastatin Calcium 20 mg 04/27/21 09:00 04/27/21 08:57 Atorvastatin 20 Mg Tablet PO 20 mg DAILY MARISOL Administration Bupropion HCl 150 mg 04/26/21 21:10 04/26/21 21:42 Bupropion Hcl Xl (24 Hr) 150 Mg Tabcr PO 150 mg HS MARISOL Administration Cyclobenzaprine HCl 10 mg 04/27/21 10:53 Cyclobenzaprine Hcl 10 Mg Tablet PO TID PRN Muscle Spasm Diclofenac Sodium 75 mg 04/27/21 09:00 04/27/21 17:36 Diclofenac Sod 75 Mg Tablet.Ec PO 75 mg BID MARISOL Administration Folic Acid 1 mg 04/27/21 09:00 04/27/21 08:05 Folic Acid 1 Mg Tablet PO 1 mg DAILY MARISOL Administration Hydromorphone HCl 0.5 mg 04/26/21 13:37 04/27/21 13:44 Hydromorphone Hcl Inj (*Crx) 1 Mg/Ml Syr IV PUSH 0.5 mg Q4H PRN Administration Pain Rated 7-10 Hydroxychloroquine Sulfate 200 mg 04/26/21 21:10 04/27/21 17:36 Hydroxychloroquine Sulfate 200 Mg Tablet PO 200 mg BID MAR[place]OL Administration Levothyroxine Sodium 150 mcg 04/27/21 06:30 04/27/21 05:29 Levothyroxine Sodium 150 Mcg Tablet PO 150 mcg DAILY@0630 [facility] Administration Miscellaneous Information 1 each 04/26/21 00:01 Emergenc Immune Is Nonformulary. Hold While Hospitalized? XX 05/26/21 00:00 CLARIFY [facility] Miscellaneous Information 1 each 04/26/21 00:01 Sprintec Oral Contraceptive Is Nonformulary. Can She Use Her Home Supply? XX 05/26/21 00:00 CLARIFY [facility] Multivitamins/Minerals 1 tab 04/27/21 09:00 04/27/21 08:05 Multivitamins /C Lutein (Centrum Silver) Tablet *Bkc PO 1 tab DAILY [facility] Administration Non-Formulary Medication 1 each 04/27/21 09:00 Ascorbic Jmwf-Ywanoawf-Utk [Emergen-C Immune Plus] PO 05/27/21 08:59 DAILY [facility] Non-Formulary Medication 1 tablet 04/27/21 09:00 Norgestimate-Ethinyl Estradiol [Sprintec (28)] PO 05/27/21 08:59 DAILY [facility] Ondansetron HCl 4 mg 04/26/21 13:37 Ondansetron Inj 4 Mg/2 Ml Vial IV PUSH Q4H PRN Nausea Venlafaxine HCl 225 mg 04/27/21 09:00 04/27/21 08:05 Venlafaxine Hcl Xr 75 Mg Cap.Er.24h PO 225 mg DAILY [facility] Ad
[2021-04-27] MEDS: CYCLOBENZAPRINE HCL 10 MG TABLET PO (19:30)
[2021-04-27 20:00] VITALS: O2SAT 99
[2021-04-27 20:20] VITALS: BP 136/82; PULSE 79; RESP 18; TEMP 36.4; O2SAT 99
[2021-04-27] MEDS: buPROPion HCL XL (24 HR) 150 MG TABCR PO (20:55)
[2021-04-28] MEDS: HYDROmorphone HCL INJ (*CRX) 1 MG/ML SYR 0.5 MG IV PUSH ×2 (00:20→08:16)
[2021-04-28] MEDS: HYDROcodone/acetaminophen (*CRX) 5-325 MG TABLET 1 TAB PO ×2 (03:50→11:18)
[2021-04-28 04:00] VITALS: BP 137/97; PULSE 91; RESP 18; TEMP 36.8; O2SAT 98
[2021-04-28] MEDS: LEVOTHYROXINE SODIUM 150 MCG TABLET PO (06:12)
[2021-04-28 06:27] LABS: Basophils Percent Auto 0.4 % (0.2-1.2); Eosinophils Absolute Auto 0.3 K/mm3 (0-0.3); Eosinophils Percent Auto 3.5 % (0-4.4); Hemoglobin 10.1 g/dL (12.0-15.0); Immature Granulocyte Absolute 0.02 K/mm3 (0.00-0.031); Immature Granulocyte Percent A 0.2 % (0-0.5); Lymphocytes Absolute Auto 1.32 K/mm3 (0.9-3.2); Mean Corpuscular HGB Conc 31.6 g/dl (32-36); Mean Corpuscular Volume 82.3 fl (80-100); Mean Platelet Volume 9.1 fl (7.4-10.4); Monocytes Absolute Auto 0.9 K/mm3 (0.1-0.6); Monocytes Percent Auto 11.4 % (2.6-8.5); Neutrophils Absolute Auto 5.6 K/mm3 (1.3-6.7); Neutrophils Percent Auto 68.5 % (45.5-73.1); Platelet Count Result 385 k/mm3 (150-375); Red Blood Count 3.89 M/mm3 (4.2-5.4); Red Cell Distribution Width 14.6 % (11.5-14.5); White Blood Count 8.2 K/mm3 (4.5-10.0)
[2021-04-28 06:47] LABS: Alanine Aminotransferase 15 U/L (4-35); Albumin Level 3.6 g/dL (3.5-5.1); Alkaline Phosphatase 103 U/L (38-126); Anion Gap 8 mmol/L (8-16); Aspartate Amino Transferase 25 U/L (14-36); Bilirubin,Total 0.4 mg/dL (0.2-1.3); Blood Urea Nitrogen 8 mg/dL (7-17); Calcium 8.8 mg/dL (8.4-10.2); Carbon Dioxide 28 mmol/L (22-30); Chloride 101 mmol/L (98-107); Estimated CRCL calculation 104 ml/min; Estimated Glomerular Filt Rate > 60; Glucose 102 mg/dL (65-110); Magnesium 1.7 mg/dL (1.6-2.3); Potassium 3.5 mmol/L (3.4-5.0); Sodium 137 mmol/L (137-145)
[2021-04-28 08:00] VITALS: BP 135/85; PULSE 82; RESP 18; TEMP 36.8; O2SAT 100; O2SAT 99
[2021-04-28 08:17] VITALS: PULSE 84
[2021-04-28] MEDS: DICLOFENAC SOD 75 MG TABLET.EC PO (08:17)
[2021-04-28] MEDS: amLODIPine BESYLATE 5 MG TABLET 10 MG PO (08:17)
[2021-04-28] MEDS: MULTIVITAMINS /C LUTEIN (CENTRUM SILVER) TABLET *BKC 1 TAB PO (08:17)
[2021-04-28] MEDS: atenoloL 50 MG TABLET 100 MG PO (08:17)
[2021-04-28] MEDS: VENLAFAXINE HCL XR 75 MG CAP.ER.24H 225 MG PO (08:17)
[2021-04-28] MEDS: HYDROXYCHLOROQUINE SULFATE 200 MG TABLET PO (08:18)
[2021-04-28] MEDS: FOLIC ACID 1 MG TABLET PO (08:18)
[2021-04-28] MEDS: ATORVASTATIN 20 MG TABLET PO (08:18)
[2021-04-28] MEDS: CHOLECALCIFEROL 1,000 UNITS TABLET 2000 UNITS PO (08:18)
[2021-04-28 08:33] VITALS: O2SAT 98
[2021-04-28 08:35] LABS: Hepatitis B Surface Antigen Negative (Negative)
[2021-04-28 08:41] LABS: HAV RESULT Negative (Negative); Hepatitis B Core IgM Result Negative (Negative)
[2021-04-28 08:53] LABS: Hepatitis C Virus Antibody Negative (Negative)
[2021-04-28 12:00] VITALS: BP 143/86; PULSE 80; RESP 20; TEMP 36.3; O2SAT 99
--- NOTE | 2021-04-28 13:57 | PM.DS ---
DS: Admitting Diagnosis Discharge Date 04/28/2021 Admitting Diagnosis 04/27/2021 DS: Discharge Diagnosis Discharge Diagnosis (1) Fracture of right iliac crest: Code(s): S32.301A - Unspecified fracture of right ilium, initial encounter for closed fracture Status: Acute Assessment and Plan: Unclear what could have caused this fracture; twisting action/osteopenia/past injury or trauma, she denies recent falls and trauma Xray found: Linear vertical fracture through the right iliac crest with up to 1.3 cm lateral displacement Orthopedic consult - ok with discharge today and wants her to F/U with them in 2 weeks. Pain control with tylenol and/or [place] PT/OT verified patient tolerated steps and ADLs today (2) Essential (primary) hypertension: Code(s): I10 - Essential (primary) hypertension Status: Acute Assessment and Plan: BP is 137/88 yesterday, 137/97 to 136/82 today with HR 79-91 today Continue home amlodipine 10mg PO daily, atenolol 100mg PO BID, home meds. F/U with PCP in 3-14 days. (3) Hypothyroidism: Qualifiers: Hypothyroidism type: acquired Qualified Code(s): E03.9 - Hypothyroidism, unspecified Code(s): E03.9 - Hypothyroidism, unspecified Status: Acute Assessment and Plan: TSH 3.730 Continue levothyroxine no changes in home levothyroxine patient denies any thyroid s/s or concerns (4) Rheumatoid arthritis: Code(s): M06.9 - Rheumatoid arthritis, unspecified Status: Chronic Assessment and Plan: No acute problems Continue plaquenil F/U with PCP and Ortho in 3-14 days. (5) Elevated LFTs: Code(s): R79.89 - Other specified abnormal findings of blood chemistry Status: Acute Assessment and Plan: AST/ALT 52/59 at admission. Now LFTs wnl. WBC normal. Hep panel normal/negative DS: Summary Hospital Course Hospital Course: Radiology showed closed Pelvic fracture. Orthopedic Surgeon evaluated, mobilize as tolerated, use walker for support, PT/OT evaluation completed for safety at home with ADLs and steps. She is to F/U with Orthopedic Surgeon and PCP within 3-14 days. Time Spent with Patient Time attestation: Total time spent providing and/or coordinating discharge services:60 minutes Exam Narrative: General: Well-developed female supine in bed no distress. HEENT: Normocephalic, atraumatic. PERRL, EOMI. Sclerae anicteric. Oral mucosa moist. Oropharynx clear. Neck: Supple. Respiratory: Lungs are clear to auscultation bilaterally. Cardiovascular: Regular rate and rhythm with S1-S2. Gastrointestinal: Abdomen is soft, nontender, and nondistended with positive bowel sounds. No organomegaly. Skin: Warm and dry. No rash or lesions on limited exam. Extremities: No cyanosis, clubbing, or edema. Radial and pedal pulses intact. Musculoskeletal: Tender to palpation in the right posterolateral hip.tolerating ADLs well. Resting in bed without discomfort, able to move independently without pain. Neurological: Alert. Cranial nerves 2-12 are grossly intact. No gross focal deficits to casual conversation. Psychiatric: Pleasant and cooperative with normal mood and affect. Judgment and insight intact. Const: General: cooperative, healthy appearing, no acute distress, well developed, alert, awake and uncomfortable Nutritional Appearance: well nourished Orientation/consciousness: oriented to person, oriented to place, oriented to time and patient oriented x3 Limitations: physical limitations (Broken pelvis) HENMT: Head: normal to inspection Ears: hearing grossly normal bilaterally General nose exam: Normal external nose present Mouth: Yes Normal oral and palatal mucosa present, Yes lip normal and Yes tongue normal Teeth and gingiva: abnormal tooth and associated gingiva and poor dentition Eyes: General: appearance normal, both eyes and all related structures Neck: Neck: normal visual inspection, fu
== END 2021-04-28 15:15 | disposition home or self-care (01) | DRG 536 ==
LOC: ANHED 12:43 → ANH3MEDSUR 15:28
PROVIDERS: Nurse Practitioner; Physician Assistant; Admitting Provider Internal Medicine; Emergency Provider Emergency Medicine; PCP Family Medicine; Visit Provider Nurse Practitioner
DX: S32.391A Other fracture of right ilium, initial encounter for closed fracture (principal); W18.49XA Other slipping, tripping and stumbling without falling, initial encounter; I10 Essential (primary) hypertension; E03.9 Hypothyroidism, unspecified; M06.9 Rheumatoid arthritis, unspecified; R79.89 Other specified abnormal findings of blood chemistry; D64.9 Anemia, unspecified; F41.9 Anxiety disorder, unspecified; F32.A Depression, unspecified; E78.5 Hyperlipidemia, unspecified; M79.7 Fibromyalgia; K58.9 Irritable bowel syndrome, unspecified; Z86.16 Personal history of COVID-19
CPT/HCPCS: 36415; 73502; 74177; 80048; 80053; 80074; 83735; 84443; 85025; 85610; 85730; 93005; 96365; 96372; 96375; 96376; 97116; 97161; 97165; 97530; 99285; A9270; G0378; J0131; J1170; J1885; Q9967

== ENCOUNTER 2021-08-06 01:00 | Day surgery (SDC) | payer BC, SELFPAY ==
[2021-07-24 13:37] VITALS: BMI 38.6
[2021-08-06 07:00] VITALS: BP 153/99; PULSE 88; RESP 20; TEMP 36.4; O2SAT 98
[2021-08-06] MEDS: LACTATED RINGERS 1,000 ML 150 ML IV CONT ×2 (07:08→08:06)
--- NOTE | 2021-08-06 07:36 | WPDANESEPPF ---
Anes - Initial Pre Proc Eval Procedure: Operation Date: 08/06/21 08:00 Proposed Procedures p Screening Colonoscopy - Tim Bryson MD Date/Time: 08/06/21 07:36 Surgeon: Tim Bryson MD Pre Op Diagnosis: neoplasm screening Patient Data Age: 46 Gender: F Height: 1.63 m Weight: 102.2 kg Last Vital Signs Temp 36.4 C L 08/06/21 07:00 Pulse 88 08/06/21 07:00 Resp 20 08/06/21 07:00 BP 153/99 H 08/06/21 07:00 Pulse Ox 98 08/06/21 07:00 Allergies Allergy/AdvReac Type Severity Reaction Status Date / Time adalimumab Allergy Unknown rash Verified 08/06/21 06:58 cefdinir Allergy Unknown rash Verified 08/06/21 06:58 etanercept Allergy Unknown rash Verified 08/06/21 06:58 trimethoprim Allergy Unknown Unknown Verified 08/06/21 06:58 sulfamethizole AdvReac Unknown Vomiting Verified 08/06/21 06:58 sulfamethoxazole AdvReac Unknown Nausea and Verified 08/06/21 06:58 Vomiting Home Medications Medication Instructions Recorded Confirmed Type norgestimate 0.25 mg-ethinyl 1 tablet PO DAILY 05/17/19 07/24/21 History estradiol 35 mcg tablet venlafaxine 225 mg tablet,extended 225 mg PO DAILY 05/17/19 07/24/21 History release 24 hr folic acid 1 mg tablet 1 mg PO DAILY 05/20/19 07/24/21 History bupropion HCl 150 mg 24 hr tablet, 150 mg PO HS 08/28/20 07/24/21 History extended release cholecalciferol (vitamin D3) 50 50 mcg PO DAILY 08/28/20 07/24/21 History mcg (2,000 unit) capsule cyclobenzaprine 10 mg tablet 10 mg PO HS 08/28/20 07/24/21 History diclofenac sodium 2 % topical 1 packet TOPICAL BID PRN 08/28/20 07/24/21 History solution in packet diclofenac sodium 75 mg 75 mg PO BID 08/28/20 07/24/21 History tablet,delayed release hydroxychloroquine 200 mg tablet 200 mg PO BID 08/28/20 07/24/21 History levothyroxine 150 mcg capsule 150 mcg PO DAILY 08/28/20 07/24/21 History atenolol 100 mg tablet 100 mg PO BID #60 tablet 09/24/20 07/24/21 Rx amlodipine 10 mg tablet 10 mg PO DAILY #90 tablet 10/30/20 07/24/21 Rx Emergen-C Immune Plus 1 ea PO DAILY 03/11/21 07/24/21 History One Daily Women's 1 tablet PO DAILY 03/11/21 07/24/21 History atorvastatin 20 mg tablet 20 mg PO DAILY #90 tablet 03/21/21 07/24/21 Rx acetaminophen [Mapap 650 mg PO Q6H PRN #20 tablet 04/28/21 07/24/21 Rx (acetaminophen)] Patient hx anesthesia problems: none Family hx anesthesia problems: none Results Review: All pre-operative results and documents have been reviewed as part of the pre-operative evaluation. [facility] Past Medical History Medical History Anemia Anxiety Depression Essential (primary) hypertension Fibromyalgia Fracture of left tibia and fibula (05/15/19) Hypothyroidism [place] thyroiditis. Irritable bowel syndrome Other hyperlipidemia Pneumonia due to COVID-19 virus (02/2021) Rheumatoid arthritis Uterus didelphus Surgical History Surgical History History of 2 sections Right uterus 06/14/1998. Left uterus 04/29/2001. History of open reduction and internal fixation (ORIF) procedure Left leg tibia/fibula fracture with hardware removal on 09/07/2019. Status post hysteroscopic resection of uterine septum (12/28/90) Family History Family History Mother Family history of allergic disorder Family history of arthritis Depression Patient's mother is in good health, Onset Age: 57 Family history of mental disorder Family history of migraine headaches Hypertension Asthma Sibling Depression Family history of migraine headaches Asthma Family history of allergic disorder Grandparent Family history of malignant neoplasm of breast Social History Social History Social History: The patient lives in [place] with her . They have 2 grown children. Employed
--- NOTE | 2021-08-06 08:04 | WPDGICN ---
Assessment and Plan Assessment and plan (1) Encounter for screening colonoscopy: Code(s): Z12.11 - Encounter for screening for malignant neoplasm of colon Status: Acute Assessment and Plan: Patient presents for screening colonoscopy. Appears to be at average risk for colon polyps. GI Consult Note Consult date/time: 08/06/21 08:04 HPI: Anabel Johns is a 46 year old female Presents for screening colonoscopy. Patient's current weight appetite and bowel movements are normal. Patient denies abdominal pain. She has had no bleeding. Family history is noncontributory. She presents today for screening colonoscopy. Review of Systems Review of Systems: All systems reviewed & are unremarkable except as noted in HPI and below PMFSH Past Medical History Medical History Anemia Anxiety Depression Essential (primary) hypertension Fibromyalgia Fracture of left tibia and fibula (05/15/19) Hypothyroidism [place] thyroiditis. Irritable bowel syndrome Other hyperlipidemia Pneumonia due to COVID-19 virus (02/2021) Rheumatoid arthritis Uterus didelphus Surgical History Surgical History History of 2 sections Right uterus 06/14/1998. Left uterus 04/29/2001. History of open reduction and internal fixation (ORIF) procedure Left leg tibia/fibula fracture with hardware removal on 09/07/2019. Status post hysteroscopic resection of uterine septum (12/28/90) Family History Family History Mother Family history of allergic disorder Family history of arthritis Depression Patient's mother is in good health, Onset Age: 57 Family history of mental disorder Family history of migraine headaches Hypertension Asthma Sibling Depression Family history of migraine headaches Asthma Family history of allergic disorder Grandparent Family history of malignant neoplasm of breast Social History Social History Social History: The patient lives in [place] with her . They have 2 grown children. Employed at [employer]. No tobacco, alcohol, or drug use. She designates her [place] as her surrogate decision maker and she wishes to be a full code. Living arrangements: with family Spiritual care concerns: No Meds Home Medications and Allergies Home Medications Medication Instructions Recorded Confirmed Type norgestimate 0.25 mg-ethinyl 1 tablet PO DAILY 05/17/19 07/24/21 History estradiol 35 mcg tablet venlafaxine 225 mg tablet,extended 225 mg PO DAILY 05/17/19 07/24/21 History release 24 hr folic acid 1 mg tablet 1 mg PO DAILY 05/20/19 07/24/21 History bupropion HCl 150 mg 24 hr tablet, 150 mg PO HS 08/28/20 07/24/21 History extended release cholecalciferol (vitamin D3) 50 50 mcg PO DAILY 08/28/20 07/24/21 History mcg (2,000 unit) capsule cyclobenzaprine 10 mg tablet 10 mg PO HS 08/28/20 07/24/21 History diclofenac sodium 2 % topical 1 packet TOPICAL BID PRN 08/28/20 07/24/21 History solution in packet diclofenac sodium 75 mg 75 mg PO BID 08/28/20 07/24/21 History tablet,delayed release hydroxychloroquine 200 mg tablet 200 mg PO BID 08/28/20 07/24/21 History levothyroxine 150 mcg capsule 150 mcg PO DAILY 08/28/20 07/24/21 History atenolol 100 mg tablet 100 mg PO BID #60 tablet 09/24/20 07/24/21 Rx amlodipine 10 mg tablet 10 mg PO DAILY #90 tablet 10/30/20 07/24/21 Rx Emergen-C Immune Plus 1 ea PO DAILY 03/11/21 07/24/21 History One Daily Women's 1 tablet PO DAILY 03/11/21 07/24/21 History atorvastatin 20 mg tablet 20 mg PO DAILY #90 tablet 03/21/21 07/24/21 Rx acetaminophen [Mapap 650 mg PO Q6H PRN #20 tablet 04/28/21 07/24/21 Rx (acetaminophen)] Allergies Allergy/AdvReac Type Severity Reaction Status Date / Time ad
[2021-08-06 08:28] VITALS: BP 99/62; PULSE 74; RESP 16; O2SAT 100
[2021-08-06 08:38] VITALS: BP 150/78; PULSE 75; RESP 18; O2SAT 100
[2021-08-06 08:48] VITALS: BP 132/86; PULSE 70; RESP 20; O2SAT 100
== END 2021-08-06 08:57 | disposition home or self-care (01) ==
PROVIDERS: PCP Family Medicine; Visit Provider Internal Medicine Gastroenterology
PROC: 0DJD8ZZ Inspection of Lower Intestinal Tract, Via Natural or Artificial Opening Endoscopic (ICD-10-PCS; CPT 45378; principal; 2021-08-06 08:00)
DX: Z12.11 Encounter for screening for malignant neoplasm of colon (principal); K64.8 Other hemorrhoids; D64.9 Anemia, unspecified; F41.8 Other specified anxiety disorders; I10 Essential (primary) hypertension; M79.7 Fibromyalgia; E06.3 Autoimmune thyroiditis; E78.49 Other hyperlipidemia; M06.9 Rheumatoid arthritis, unspecified; Q51.28 Other and unspecified doubling of uterus; K58.9 Irritable bowel syndrome, unspecified; Z86.16 Personal history of COVID-19; E03.9 Hypothyroidism, unspecified; E66.9 Obesity, unspecified; Z68.38 Body mass index [BMI] 38.0-38.9, adult
CPT/HCPCS: 45378; J2704; J7120

== ENCOUNTER → 2021-08-11 00:30 | Outpatient (CLI) | payer BC, SELFPAY ==
[2021-08-11 17:11] LABS: SARS-CoV-2 RNA PCR Positive
== END ==
PROVIDERS: PCP Family Medicine; Visit Provider Physician Assistant
DX: U07.1 COVID-19 (principal)
CPT/HCPCS: C9803; U0003; U0005

== ENCOUNTER 2022-01-30 16:56 | Emergency (ER) | payer BC, SELFPAY ==
--- NOTE | 2022-01-30 16:57 | ED.FEMALEGU ---
HPI - Female Genitourinary General Chief complaint: Urogenital-Female Stated complaint: uti symptoms Time Seen by Provider: 01/30/22 16:57 Source: patient Mode of arrival: ambulatory Limitations: no limitations History of Present Illness HPI Narrative: Mrs. Johns is a 46 year old female patient presenting to the clinic today with c/o possible UTI x 1 day. She reports feeling feverish, left flank pain, burning with urination, and urinary frequency. She denies any vaginal discharge or odor. Related Data Home Medications Medication Instructions Recorded Confirmed norgestimate 0.25 mg-ethinyl 1 tablet PO DAILY 05/17/19 07/24/21 estradiol 35 mcg tablet (Sprintec (28)) venlafaxine 225 mg tablet,extended 225 mg PO DAILY 05/17/19 07/24/21 release 24 hr folic acid 1 mg tablet 1 mg PO DAILY 05/20/19 07/24/21 bupropion HCl 150 mg 24 hr tablet, 150 mg PO HS 08/28/20 07/24/21 extended release cholecalciferol (vitamin D3) 50 50 mcg PO DAILY 08/28/20 07/24/21 mcg (2,000 unit) capsule cyclobenzaprine 10 mg tablet 10 mg PO HS 08/28/20 07/24/21 diclofenac sodium 2 % topical 1 packet topical BID PRN 08/28/20 07/24/21 solution in packet ([place]) Inflammation diclofenac sodium 75 mg 75 mg PO BID 08/28/20 07/24/21 tablet,delayed release hydroxychloroquine 200 mg tablet 200 mg PO BID 08/28/20 07/24/21 levothyroxine 150 mcg capsule 150 mcg PO DAILY 08/28/20 07/24/21 ascorbic acid 1,000 1 ea PO DAILY 03/11/21 07/24/21 [id number] powder effervescent pack (Emergen-C Immune Plus) multivit with minerals-iron 18 1 tablet PO DAILY 03/11/21 07/24/21 mg-folic ac 400 mcg-vit K 25 mcg tablet (One Daily Women's) Allergies Allergy/AdvReac Type Severity Reaction Status Date / Time adalimumab Allergy Unknown rash Verified 08/06/21 06:58 cefdinir Allergy Unknown rash Verified 08/06/21 06:58 etanercept Allergy Unknown rash Verified 08/06/21 06:58 trimethoprim Allergy Unknown Unknown Verified 08/06/21 06:58 sulfamethizole AdvReac Unknown Vomiting Verified 08/06/21 06:58 sulfamethoxazole AdvReac Unknown Nausea and Verified 08/06/21 06:58 Vomiting Review of Systems Review of Systems: Pertinent positives per HPI. Patient denies any fever, chills, rash, headache, visual changes, dizziness, cough, runny nose, sore throat, shortness of breath, chest pain, palpitations, nausea, vomiting, diarrhea, constipation. [facility] Past Medical History Medical History Anemia Anxiety Depression Essential (primary) hypertension Fibromyalgia Fracture of left tibia and fibula (05/15/19) Hypothyroidism [place] thyroiditis. Irritable bowel syndrome Other hyperlipidemia Pneumonia due to COVID-19 virus (02/2021) Rheumatoid arthritis Uterus didelphus Surgical History Surgical History History of 2 sections Right uterus 06/14/1998. Left uterus 04/29/2001. History of open reduction and internal fixation (ORIF) procedure Left leg tibia/fibula fracture with hardware removal on 09/07/2019. Status post hysteroscopic resection of uterine septum (12/28/90) Family History Family History Mother Family history of allergic disorder Family history of arthritis Depression Patient's mother is in good health, Onset Age: 57 Family history of mental disorder Family history of migraine headaches Hypertension Asthma Sibling Depression Family history of migraine headaches Asthma Family history of allergic disorder Grandparent Family history of malignant neoplasm of breast Social History Social History Social History: The patient lives in [place] with her . They have 2 grown children. Employed at [employer]. No tobacco, alcohol, or drug use.
[2022-01-30 17:12] VITALS: BP 141/98; PULSE 94; RESP 16; TEMP 37.4; O2SAT 99
== END 2022-01-30 17:23 | disposition home or self-care (01) ==
PROVIDERS: Emergency Provider Nurse Practitioner Family; PCP Family Medicine
DX: N12 Tubulo-interstitial nephritis, not specified as acute or chronic (principal); I10 Essential (primary) hypertension; M79.7 Fibromyalgia; E78.2 Mixed hyperlipidemia; M06.9 Rheumatoid arthritis, unspecified; Z86.16 Personal history of COVID-19; E03.9 Hypothyroidism, unspecified; E06.3 Autoimmune thyroiditis; F41.9 Anxiety disorder, unspecified; F32.A Depression, unspecified
CPT/HCPCS: 81003; 87077; 87086; 87186; 99213; G0463

== ENCOUNTER 2022-04-18 16:35 | Outpatient (CLI) | payer BC, SELFPAY ==
--- NOTE | ~2022-04-18 | DEXA_ITS ---
Bone Density Report Name: MARCOS RAMIREZ Age: 46 Sex: Female Ethnicity: White Date of : 1975 Indication: postmenopausal; height loss; prior fracture; rheumatoid arthritis; Referring Provider: KATHARINE PALACIOS Study: Bone densitometry was performed. Exam Date: April 18, 2022 Accession number: [id number] Bone Density: Region BMD T-score Z-score Classification AP Spine(L1, L2, L3) 1.141 1.1 1.8 Normal Femoral Neck (Left) 0.842 -0.1 0.6 Normal Total Hip (Left) 1.119 1.5 1.9 Normal Femoral Neck (Right) 0.892 0.4 1.0 Normal Total Hip (Right) 1.093 1.2 1.7 Normal Total Hip Mean 1.106 1.4 1.8 Normal World Health Organization criteria for BMD impression classify patients as: Normal (T-score at or above -1.0), Osteopenia (T-score between -1.0 and -2.5), or Osteoporosis (T-score at or below -2.5). 10-year Fracture Risk: FRAX not reported because: All T-scores for Spine Total, Hip Total, Femoral Neck at or above -1.0 Prior hip or vertebral fracture Clinical Information Provided by Patient: Have had a previous hip or vertebral fracture Has had a low trauma fracture Has rheumatoid arthritis Has used the following medications: Vitamin D, Calcium Patient maximum height was 64 Drinks caffeinated beverages Onset of menses at age 6 Number of children 2 Impression: The patient has normal bone mass. The patient has risk factors, including: previous fracture. Discussion: INCREASED RISK OF FRACTURE DUE TO HISTORY OF FRACTURE. The patient's previous fracture puts the patient at high risk of a future fracture. In untreated patients, the risk of osteoporotic fracture increases approximately two-fold for each 1.0 SD decrease in T-score. Low bone density is not the only risk factor for fracture; also consider factors such as patient's age, frailty or poor health, risk of falling, risk of injury, previous osteoporotic fracture, family history of osteoporosis, cigarette smoking, low body weight, etc. Not everyone with a low trauma fracture has osteoporosis; osteomalacia and other metabolic bone disorders should also be considered. Patients who have osteoporosis should be evaluated for specific diseases and conditions (secondary causes) that may cause or contribute to bone loss and fracture risk. National Osteoporosis Foundation (NOF) recommends pharmacologic intervention for patients with a prior hip or vertebral fracture regardless of BMD T-score. The patient should follow a healthful lifestyle (good nutrition with adequate calcium and vitamin D, and appropriate weight-bearing exercise). Follow-Up: Consider a repeat BMD and Vertebral Fracture Assessment (VFA) exam in 2 years or sooner if medically necessary, to reassess this patient's status. Reported by: [facility] on 04/18/2022 4:57:00 PM.
== END 2022-04-18 16:36 | disposition home or self-care (01) ==
LOC: ANHIMG 16:36
PROVIDERS: PCP Family Medicine; Visit Provider Physician Assistant Medical
DX: S32.301A Unspecified fracture of right ilium, initial encounter for closed fracture (principal)
CPT/HCPCS: 77080

== ENCOUNTER 2022-05-31 16:06 | Emergency (ER) | payer OTHER, SELFPAY ==
--- NOTE | 2022-05-31 16:11 | ED.URI ---
HPI - URI/Sore Throat General Chief Complaint: Upper Respiratory Infection Stated Complaint: cold,flu Time Seen by Provider: 05/31/22 16:24 Source: patient and RN notes reviewed Mode of arrival: ambulatory Limitations: no limitations History of Present Illness HPI Narrative: 47-year-old female presents concern for 2 day history of cough runny nose, stuffy nose. Reports she has been taking DayQuil with mild relief. 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 She denies fever, chills, sweats. Reports body aches MD elicited complaint: cough and nasal congestion Related Data Home Medications Medication Instructions Recorded Confirmed venlafaxine 225 mg tablet,extended 225 mg PO DAILY 05/17/19 05/31/22 release 24 hr folic acid 1 mg tablet 1 mg PO DAILY 05/20/19 05/31/22 bupropion HCl 150 mg 24 hr tablet, 150 mg PO HS 08/28/20 05/31/22 extended release cholecalciferol (vitamin D3) 50 50 mcg PO DAILY 08/28/20 05/31/22 mcg (2,000 unit) capsule cyclobenzaprine 10 mg tablet 10 mg PO HS 08/28/20 05/31/22 diclofenac sodium 75 mg 75 mg PO BID 08/28/20 05/31/22 tablet,delayed release hydroxychloroquine 200 mg tablet 200 mg PO BID 08/28/20 05/31/22 levothyroxine 150 mcg capsule 150 mcg PO DAILY 08/28/20 05/31/22 multivit with minerals-iron 18 1 tablet PO DAILY 03/11/21 05/31/22 mg-folic ac 400 mcg-vit K 25 mcg tablet (One Daily Women's) ascorbic acid 1,000 1,000 ea PO DAILY 05/31/22 05/31/22 [id number] powder effervescent pack (Emergen-C Immune Plus) Allergies Allergy/AdvReac Type Severity Reaction Status Date / Time adalimumab Allergy Unknown rash Verified 05/31/22 16:20 cefdinir Allergy Unknown rash Verified 05/31/22 16:20 etanercept Allergy Unknown rash Verified 05/31/22 16:20 trimethoprim Allergy Unknown vomiting, Verified 05/31/22 16:20 diarrhea sulfamethizole AdvReac Unknown Vomiting Verified 05/31/22 16:20 sulfamethoxazole AdvReac Unknown Nausea and Verified 05/31/22 16:20 Vomiting Review of Systems Review of Systems: CONSTITUTIONAL: Reports malaise. Denies chills, sweats, or fever. EYES: Denies visual changes, redness, or discharge. ENT: Reports rhinorrhea, congestion. She sinus pain, otalgia and sore throat. CARDIOVASCULAR: Denies chest pain, palpitations, or edema. RESPIRATORY: Reports cough. Denies dyspnea. GASTROINTESTINAL: Denies abdominal pain, nausea, vomiting, diarrhea SKIN: Denies rash or itching. MUSCULOSKELETAL: Reports myalgia. NEUROLOGIC: Denies headache. All systems reviewed & are unremarkable except as noted in HPI and below PMFSH Past Medical History Medical History Anemia Anxiety Depression Essential (primary) hypertension Fibromyalgia Fracture of left tibia and fibula (05/15/19) Hypothyroidism [place] thyroiditis. Irritable bowel syndrome Other hyperlipidemia Pneumonia due to COVID-19 virus (02/2021) Rheumatoid arthritis Uterus didelphus Surgical History Surgical History History of 2 sections Right uterus 06/14/1998. Left uterus 04/29/2001. History of open reduction and internal fixation (ORIF) procedure Left leg tibia/fibula fracture with hardware removal on 09/07/2019. Status post hysteroscopic resection of uterine septum (12/28/90) Family History Family History Mother Family history of allergic disorder Family history of arthritis Depression Patient's mother is in good health, Onset Age: 57 Family history of mental disorder Family history of migraine headaches Hypertension Asthma Sibling Depression Family history of migraine headaches Asthma Family history of allergic disorder Grandparent Family history of malignant neoplasm of breast Social History Social History (Updated 02/13/22 @ 10:29 by Ashanti Amos CMA) Social History: The patien
[2022-05-31 16:19] VITALS: BP 136/82; PULSE 95; RESP 16; TEMP 36.8; O2SAT 99
[2022-05-31 16:21] VITALS: BP 136/82; PULSE 95; RESP 16; TEMP 36.8; O2SAT 99
== END 2022-05-31 16:38 | disposition home or self-care (01) ==
PROVIDERS: Emergency Provider Nurse Practitioner; PCP Family Medicine
DX: J40 Bronchitis, not specified as acute or chronic (principal); I10 Essential (primary) hypertension; M79.7 Fibromyalgia; M06.9 Rheumatoid arthritis, unspecified; E78.49 Other hyperlipidemia; E06.3 Autoimmune thyroiditis; E03.9 Hypothyroidism, unspecified; F41.9 Anxiety disorder, unspecified; F32.A Depression, unspecified
CPT/HCPCS: 99213; G0463

== ENCOUNTER → 2022-08-13 10:24 | Outpatient (CLI) | payer OTHER, SELFPAY ==
--- NOTE | ~2022-08-13 | XR_ITS ---
EXAM: XR hand LT 2V, XR hand RT 2V, XR wrist LT 2V, XR wrist RT 2V DATE: 08/13/2022 10:54 HISTORY: Rheumatoid arthritis of multiple sites w negative rheumatoid . COMPARISON: None available. FINDINGS: Normal mineralization. No fracture or dislocation. No lytic or blastic lesion. Joint space s are maintained. No erosion or periosteal change. Soft tissues within normal limits. IMPRESSION: Unremarkable radiographs of the bilateral hands and wrists, without definite evidence of inflammatory arthropathy. Reviewed, dictated and finalized at location K. ATION NURSE IMPRESSION: Unremarkable radiographs of the bilateral hands and wrists, without definite evidence of inflammatory arthropathy. IMPRESSION: Unremarkable radiographs of the bilateral hands and wrists, without definite evidence of inflammatory arthropathy. IMPRESSION: Unremarkable radiographs of the bilateral hands and wrists, without definite evidence of inflammatory arthropathy.
--- NOTE | ~2022-08-13 | XR_ITS ---
EXAM: XR ankle RT 2V, XR foot LT 2V, XR foot RT 2V, XR ankle LT 2V DATE: 08/13/2022 10:54 HISTORY: Bilateral foot pain . COMPARISON: X-ray left ankle 05/15/2019. FINDINGS: Left syndesmotic and posterior malleolar repair, without complication. Mild degenerative c hange in the bilateral ankle joints. Small osseous spur at the insertion of the right anterior ankle joint capsule. Small bilateral ankle joint effusions. Severe bilateral hallux valgus. Multiple old bi lateral second through fifth metatarsal shaft fractures, healed in varying degrees of mild to moderat e deformity. Osseous bridging is likely present at all of the old fracture sites, but nonunion remain s possible. Moderate plantar enthesopathy on the left. IMPRESSION: No acute osseous finding in the bilateral ankles or feet. Significant bilateral forefoot posttraumatic findings, detailed above. Severe bilateral hallux valgus. Moderate left plantar entheso maurilio. Reviewed, dictated and finalized at location K. COLUMN OPERATOR IMPRESSION: No acute osseous finding in the bilateral ankles or feet. Significa nt bilateral forefoot posttraumatic findings, detailed above. Severe bilateral hallux valgus. Moderate left plantar enthesopathy. IMPRESSION: No acute osseous finding in the bilateral ankles or feet. Significa nt bilateral forefoot posttraumatic findings, detailed above. Severe bilateral hallux valgus. Moderate left plantar enthesopathy. IMPRESSION: No acute osseous finding in the bilateral ankles or feet. Significa nt bilateral forefoot posttraumatic findings, detailed above. Severe bilateral hallux valgus. Moderate left plantar enthesopathy.
== END ==
PROVIDERS: PCP Family Medicine; Visit Provider Nurse Practitioner Family
DX: M06.09 Rheumatoid arthritis without rheumatoid factor, multiple sites (principal); M20.12 Hallux valgus (acquired), left foot; M20.11 Hallux valgus (acquired), right foot; M77.32 Calcaneal spur, left foot; M77.31 Calcaneal spur, right foot
CPT/HCPCS: 73100; 73120; 73600; 73620

== ENCOUNTER 2022-12-06 12:52 | Outpatient (CLI) | payer OTHER, SELFPAY ==
--- NOTE | 2022-12-06 13:06 | ECG_ITS ---
Measurements Intervals [place] Rate: 70 P: 28 NC: 145 QRS: -29 QRSD: 100 T: 11 QT: 418 QTc: 454 Interpretive Statements SINUS RHYTHM DELAYED PRECORDIAL R/S TRANSITION LOW QRS VOLTAGE IN PRECORDIAL LEADS BASELINE ARTIFACT- II, III, AVF BORDERLINE ECG COMPARED TO ECG 04/26/2021 09:58:38 NO SIGNIFICANT CHANGES Electronically Signed On 12-06-2022 13:24:30 CDT by Pankaj Silva D.O.
== END 2022-12-06 12:53 | disposition home or self-care (01) ==
PROVIDERS: PCP Family Medicine; Visit Provider Anesthesiology
DX: Z01.818 Encounter for other preprocedural examination (principal); E78.5 Hyperlipidemia, unspecified; I10 Essential (primary) hypertension
CPT/HCPCS: 93005

== ENCOUNTER 2022-12-13 05:47 | Day surgery (SDC) | payer OTHER, SELFPAY ==
[2022-11-20 09:15] VITALS: BMI 36.9
[2022-12-02 13:22] VITALS: BMI 37.0
--- NOTE | ~2022-12-13 | XR_ITS ---
EXAMINATION: XR surgery orthopedic DATE: 12/13/2022 08:31 INDICATION: Arthritic bunion of left foot. TECHNIQUE: 2 intraoperative fluoroscopic views of left foot were obtained. I was not present. Fluoros copy exposure time was 8 seconds. COMPARISON: Left foot radiographs 08/13/2022 FINDINGS: There is moderate hallux valgus. There are changes of arthrodesis of first metatarsophalang eal joint with dorsal plate and screws. There are old fractures of the diaphyses of second-fifth meta tarsals with nonunion. IMPRESSION: 1. Arthrodesis of first metatarsophalangeal joint. Reviewed, dictated and finalized at location A.
[2022-12-13 06:15] VITALS: BP 127/86; PULSE 81; RESP 20; TEMP 36.1; O2SAT 98
[2022-12-13] MEDS: LACTATED RINGERS 1,000 ML 30 ML IV CONT (06:30)
--- NOTE | 2022-12-13 06:37 | WPDANESEPPF ---
Anes - Initial Pre Proc Eval Procedure: Operation Date: 12/13/22 07:30 Proposed Procedures p Arthrodesis First Metatarsophalangeal Joint Left Foot - Renato Ellison JR, MD Date/Time: 12/13/22 06:37 Surgeon: Renato Ellison JR, MD Pre Op Diagnosis: Arthritic Bunion Left Foot Patient Data Age: 47 Gender: F Height: 1.63 m Weight: 98.1 kg Last Vital Signs Temp 36.1 C L 12/13/22 06:15 Pulse 81 12/13/22 06:15 Resp 20 12/13/22 06:15 BP 127/86 12/13/22 06:15 Pulse Ox 98 12/13/22 06:15 O2 Del Method Room Air 12/13/22 06:15 Allergies Allergy/AdvReac Type Severity Reaction Status Date / Time adalimumab Allergy Unknown rash Verified 12/13/22 06:23 cefdinir Allergy Unknown rash Verified 12/13/22 06:23 etanercept Allergy Unknown rash Verified 12/13/22 06:23 trimethoprim Allergy Unknown vomiting, Verified 12/13/22 06:23 diarrhea sulfamethizole AdvReac Unknown Vomiting Verified 12/13/22 06:23 sulfamethoxazole AdvReac Unknown Nausea and Verified 12/13/22 06:23 Vomiting Home Medications Medication Instructions Recorded Confirmed Type venlafaxine 225 mg tablet,extended 225 mg PO DAILY 05/17/19 12/13/22 History release 24 hr folic acid 1 mg tablet 1 mg PO DAILY 05/20/19 12/13/22 History bupropion HCl 150 mg 24 hr tablet, 150 mg PO HS 08/28/20 12/13/22 History extended release cholecalciferol (vitamin D3) 50 50 mcg PO DAILY 08/28/20 12/13/22 History mcg (2,000 unit) capsule cyclobenzaprine 10 mg tablet 10 mg PO HS 08/28/20 12/13/22 History hydroxychloroquine 200 mg tablet 200 mg PO BID 08/28/20 12/13/22 History levothyroxine 150 mcg capsule 150 mcg PO DAILY 08/28/20 12/13/22 History multivit with minerals-iron 18 1 tablet PO DAILY 03/11/21 12/13/22 History mg-folic ac 400 mcg-vit K 25 mcg tablet (One Daily Women's) amlodipine 10 mg tablet 10 mg PO DAILY #90 tabs 04/30/22 12/13/22 Rx atenolol 100 mg tablet 100 mg PO BID #180 tabs 05/03/22 12/13/22 Rx atorvastatin 20 mg tablet 20 mg PO DAILY #90 tabs 10/15/22 12/13/22 Rx lisinopril 2.5 mg tablet 2.5 mg PO DAILY #90 tabs 10/30/22 12/13/22 Rx norgestimate 0.25 mg-ethinyl 1 tablet PO HS 12/02/22 12/13/22 History estradiol 35 mcg tablet (Estarylla) Patient hx anesthesia problems: none Family hx anesthesia problems: none Results Review: All pre-operative results and documents have been reviewed as part of the pre-operative evaluation. [facility] Past Medical History Medical History Anemia Anxiety Depression Essential (primary) hypertension Fibromyalgia Fracture of left tibia and fibula (05/15/19) Hypothyroidism [place] thyroiditis. Irritable bowel syndrome Other hyperlipidemia Pneumonia due to COVID-19 virus (02/2021) Rheumatoid arthritis Uterus didelphus Surgical History Surgical History History of 2 sections Right uterus 06/14/1998. Left uterus 04/29/2001. History of open reduction and internal fixation (ORIF) procedure Left leg tibia/fibula fracture with hardware removal on 09/07/2019. Status post hysteroscopic resection of uterine septum (12/28/90) Family History Family History Mother Family history of allergic disorder Family history of arthritis Depression Patient's mother is in good health, Onset Age: 57 Family history of mental disorder Family history of migraine headaches Hypertension Asthma Sibling Depression Family history of migraine headaches Asthma Family history of allergic disorder Grandparent Family history of malignant neoplasm of breast Social History Social History Social History: The patient lives in [place] with her . They have 2 grown children. 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 No tobacco, alcohol,
--- NOTE | 2022-12-13 07:22 | W.PM.PROC2 ---
Procedure Note - Detailed Date of Procedure 12/13/22 Pre-op Diagnosis Arthritic Bunion Left Foot Post-op Diagnosis Same Procedure Performed Arthrodesis of the first metatarsal phalangeal joint left foot Surgeon Renato Ellison JR, SALLIE Anesthesia General and Regional Indications Painful left forefoot Description of Procedure PROCEDURE IN DETAIL: Under mild sedation, the patient was brought into the operating room, placed on the operating table in supine position. A pneumatic ankle tourniquet was placed about the patient's ipsilateral ankle. Following general LMA, and a popliteal fossa block was obtained about the left lower extremity. The foot was then scrubbed, prepped, and draped in the usual aseptic manner. An Esmarch bandage was then used to exsanguinate the patient's foot and the pneumatic ankle tourniquet was then inflated. Surgery began in the following manner: Attention was directed to the dorsal aspect of the 1st metatarsophalangeal joint where there was a large osseous medial eminence noted along the dorsomedial aspect of the joint. The incision was made starting along the central shaft of the 1st metatarsal and extending just proximal to the interphalangeal joint of the hallux. The incision was continued deep down through the subcutaneous tissues using sharp and blunt dissection. All bleeders were cauterized as necessary. At this point, the dissection was continued down to the level of the periosteum and capsular structures overlying the 1st metatarsophalangeal joint. A full length periosteum and capsular incision was made just medial to the extensor hallucis longus tendon. The periosteum and capsular structures were freed from the base of the proximal phalanx as well as the distal 1st metatarsal. At this point, the 1st metatarsophalangeal joint was identified. There was partial loss of articular cartilage to the head of the 1st metatarsal as well as the base of the proximal phalanx. There was significant broadening and hypertrophy of the 1st metatarsophalangeal joint. Utilizing a sagittal bone saw, the hypertrophied 1st metatarsal was resected dorsally, medially, and laterally. A power bur was used to make sure that there were no rough edges and also to further debride the hypertrophic 1st metatarsal. Next, a rongeur was used to resect all hypertrophic base of the proximal phalanx. At this point, the reamer system for the [employer] CrossCHECK system was used to denude the degenerative cartilage from the head of the 1st metatarsal as well as the base of the proximal phalanx. The cartilage and subchondral bone were fully debrided utilizing the reamer system until healthy bleeding bone was noted. Next, a 2-0 drill bit was used to further fenestrate the head of the 1st metatarsal as well as the base of the proximal phalanx in order to allow fusion across the 1st metatarsophalangeal joint. Next, a 0.045 inch K-wire was driven from the medial aspect of the base of the proximal phalanx into the head of the 1st metatarsal in order to serve as temporary fixation. A large steel plate was used to make sure that the hallux was in a rectus position both in the sagittal plane as well as the frontal and transverse plane. Excellent position of the hallux was noted. Next, a CrossCHECK plate was placed atop the 1st metatarsophalangeal joint held in position with [place] wires. Utilizing standard principles and techniques, the 2 distal drill holes were drilled and two 2.7 mm mm fully-threaded locking screws were driven from dorsal to plantar holding the distal aspect of the plate in place. At this point, a 3.5mm lag screw was driven from dorsal distal to proximal plantar across the 1st metatarsophalangeal joint through the plate system with excellent compression noted after careful removal of the olive wire and temporary fixation from the 1st metatarsophalangeal joint. Next, 2 proximal drill holes were drilled from dorsal to plantar
--- NOTE | 2022-12-13 07:23 | WPDHPUPDATE1 ---
History and Physical Update Update Date/Time: 12/13/22 07:23 History and Physical has been reviewed, including an updated exam of the patient. There are NO changes in the patient's condition. Risks, benefits, and alternatives have been discussed and questions answered. Patient agrees to proceed with procedure.
[2022-12-13] MEDS: CLINDAMYCIN 900 MG/NS 50 ML 900 MG/50 ML PIGGYBACK 50 MG IVPB (07:41)
[2022-12-13 08:46] VITALS: BP 135/72; PULSE 87; RESP 14; TEMP 36.8; O2SAT 100
[2022-12-13 09:00] VITALS: BP 115/79; PULSE 82; RESP 15; O2SAT 100
[2022-12-13 09:15] VITALS: BP 116/72; PULSE 81; RESP 21; O2SAT 97
--- NOTE | 2022-12-13 09:18 | SUR.PHASEI ---
PT AWAKE AND ALERT. DENIES PAIN. READY TO SEE SPOUSE.
[2022-12-13 09:23] VITALS: BP 118/82; PULSE 79; RESP 16; O2SAT 99
[2022-12-13 09:47] VITALS: BP 124/81; PULSE 79; RESP 18; O2SAT 100
--- NOTE | 2022-12-13 10:56 | WPDANESPN ---
Anes - Prog Note Post-Op Date/Time: 12/13/22 10:56 Cardiovascular status: normal Respiratory status: normal Airway patency: baseline Mental status: baseline Post-Op hydration status: normal Vital Signs: Last Vital Signs Temp 36.8 C 12/13/22 08:46 Pulse 79 12/13/22 09:47 Resp 18 12/13/22 09:47 BP 124/81 12/13/22 09:47 Pulse Ox 100 12/13/22 09:47 O2 Del Method Room Air 12/13/22 09:47 O2 Flow Rate 3 12/13/22 09:00 Pain Score (VAS): 0/10 I/O: Intake & Output 12/12/22 12/13/22 12/13/22 23:59 07:59 15:59 Intake Total 50 Balance 50 Patient Feedback: Patient satisfied with anesthetic care.
--- NOTE | 2022-12-13 10:57 | WPDANESPNB ---
Anes - Peripheral Nerve Block Date/Time: 12/13/22 10:57 I have discussed with the patient/family/POA the placement of a peripheral nerve block for post-operative pain management, including associated risks, benefits, complications, and side effects. Alternative methods of post-operative analgesia were detailed. Questions were solicited and answers provided to the satisfaction of the patient/family/POA. Time-Out: A pre-procedural Time-Out was completed immediately before starting the procedure and confirmed: Patient Identification, Site, Procedure, Patient Position and the Availability of Requisite Equipment. Clinical Indications: Acute post-operative pain management requested by the operative surgeon. Nerve Block Insertion Note Anes-nerve block: posterior fossa sciatic (saphenous) left Patient position: supine Skin prep: chlorhexidine Needle: 22 gauge, stimulating, insulated echogenic needle. Needle length: 80 mm Technique: nerve stimulation lost at (mA) (0.35) Injectate: bupivacaine 0.5% with epi 5 mcg/ml (23cc no epi sciatic, 7cc saphenous ) Observations: tolerated well Complications: none Procedure start time:: 724 Procedure end time:: 731
== END 2022-12-13 10:11 | disposition home or self-care (01) ==
PROVIDERS: PCP Family Medicine; Visit Provider Podiatrist Foot & Ankle Surgery
PROC: (CPT 28750; principal; 2022-12-13 07:30)
DX: M20.12 Hallux valgus (acquired), left foot (principal)
CPT/HCPCS: 28750; L8699; 99199

== ENCOUNTER 2023-03-12 09:59 | Outpatient (CLI) | payer OTHER, SELFPAY ==
[2023-03-12 15:36] LABS: Influenza A QL RT-PCR Negative (Negative); Influenza B QL RT-PCR Negative (Negative); RSV RNA, RT-PCR Negative (Negative); SARS-CoV-2 RNA PCR Positive (Negative)
== END 2023-03-12 10:00 | disposition home or self-care (01) ==
PROVIDERS: PCP Family Medicine; Visit Provider Physician Assistant Medical
DX: R05.9 Cough, unspecified (principal); U07.1 COVID-19
CPT/HCPCS: 87637

== ENCOUNTER → 2023-05-24 09:29 | Outpatient (CLI) | payer OTHER, SELFPAY ==
--- NOTE | ~2023-05-24 | MM_ITS ---
EXAMINATION: MM screening roberto BI w umm HISTORY: Screening mammogram TECHNIQUE: Craniocaudal and mediolateral oblique 3-D tomosynthesis images were obtained and synthetic 2-D images were generated. CAD analysis was submitted and interpreted. COMPARISON: 01/08/2021, 11/10/2018 bilateral screening mammogram examinations BREAST PARENCHYMAL COMPOSITION: There are scattered areas of fibroglandular density. FINDINGS: There is no evidence of suspicious mass, calcification, or architectural distortion to sugg est malignancy in either breast. There has been no suspicious interval change. IMPRESSION: 1. No mammographic evidence of malignancy. 2. Recommend routine screening mammography in one year. BI-RADS Category 1: Negative Reviewed, dictated and finalized at location B. CENTER OPERATOR
== END ==
PROVIDERS: PCP Nurse Practitioner; Visit Provider Nurse Practitioner
DX: Z12.31 Encounter for screening mammogram for malignant neoplasm of breast (principal)
CPT/HCPCS: 77063; 77067

== ENCOUNTER 2024-10-27 10:29 | Outpatient (CLI) | payer OTHER, SELFPAY ==
--- NOTE | ~2024-10-27 | MM_ITS ---
EXAMINATION: MM screening [facility] BI w umm HISTORY: Screening TECHNIQUE: Craniocaudal and mediolateral oblique 3-D tomosynthesis images were obtained and synthetic 2-D images were generated. CAD analysis was submitted and interpreted. COMPARISON: Comparison to multiple prior studies sequentially, with oldest reviewed study dated 10/01. BREAST PARENCHYMAL COMPOSITION: Not dense: There are scattered areas of fibroglandular density. FINDINGS: There are developing clustered indeterminate calcifications in the upper outer quadrant of the left breast. There is no evidence of suspicious mass, calcification, or architectural distortion to suggest malignancy in either breast. There has been no suspicious interval change. The right breas t is stable without evidence for malignancy. IMPRESSION: 1. Developing clustered indeterminate left breast calcifications, upper outer quadrant, middle third. 2. Magnification views are recommended. BI-RADS Category 0: Incomplete: Needs additional imaging evaluation. Reviewed, dictated and finalized at location B. IMPRESSION: 1. Developing clustered indeterminate left breast calcifications, upper outer q uadrant, middle third. 2. Magnification views are recommended. BI-RADS Category 0: Incomplete: Needs additional imaging evaluation.
== END 2024-10-27 10:30 | disposition home or self-care (01) ==
PROVIDERS: PCP Family Medicine; Visit Provider Nurse Practitioner
DX: Z12.31 Encounter for screening mammogram for malignant neoplasm of breast (principal); R92.8 Other abnormal and inconclusive findings on diagnostic imaging of breast
CPT/HCPCS: 77063; 77067

== ENCOUNTER 2024-11-22 08:30 | Outpatient (CLI) | payer OTHER, SELFPAY ==
--- NOTE | ~2024-11-22 | MM_ITS ---
EXAMINATION: MM diagnostic roberto LT w umm HISTORY: Left breast calcifications TECHNIQUE: Spot magnification images of the left breast were performed and synthetic 2-D images were generated. CAD analysis was submitted and interpreted. COMPARISON: 10/27/2024, 05/24/2023 BREAST PARENCHYMAL COMPOSITION:Not Dense. There are scattered areas of fibroglandular density. FINDINGS: Spot magnification images demonstrate punctate, somewhat ill-defined amorphous calcificatio ns at the upper, outer aspect. No overtly suspicious or pleomorphic microcalcifications are seen. IMPRESSION: Probable benign microcalcifications of the upper, outer left breast. Six-month follow-up mammography recommended to reassess. BI-RADS category 3, probably benign findings. Reviewed, dictated and finalized at location .
== END 2024-11-22 08:31 | disposition home or self-care (01) ==
LOC: MICIMG 08:30
PROVIDERS: PCP Family Medicine; Visit Provider Obstetrics & Gynecology Gynecology
DX: R92.8 Other abnormal and inconclusive findings on diagnostic imaging of breast (principal)
CPT/HCPCS: 77061; 77065; G0279